=== PATIENT | male | born 1985 | race Caucasian/White ===

== ENCOUNTER → 2018-07-05 | Outpatient (CLI) | payer BC ==
--- NOTE | 2018-07-05 18:00 | PN ---
PROGRESS NOTE DATE OF SERVICE: 07/05/2018 This patient is a 32-year-old gentleman who has been followed in the sleep center for treatment of obstructive sleep apnea-hypopnea syndrome. The patient successfully continues to use his treatment every night without significant difficulty. He sometimes feels that the pressure may be not enough for him, especially when he starts to use the machine in the beginning of the night. Usually there is no snoring; only rarely after very long days and heavy work; according to his , when he is really tired he may start to snore. [place] Sleepiness Scale today is 7. MEDICATIONS: 1. Hydrochlorothiazide. Zocor and omeprazole have been stopped I checked patient's CPAP unit. CPAP pressure is 8 cm of water. Usage is 100% of the time for more than 4 hours. Average usage is 7.5 hours. Leak is 11 L/minute, which is in normal range. Apnea-hypopnea index is only 0.2, which is absolutely perfect. RAMP started from 5 cm of water. PHYSICAL EXAMINATION: GENERAL: A pleasant patient in no distress. VITAL SIGNS: BP 116/82, HR 85, RR 16, height 5 feet 11 inches, weight 319. Patient's weight has increased by around 21 pounds since his previous visit. Body mass index is 44.4, temperature 97.0, oxygen saturation at room air 95%. HEENT: PERRLA, EOMI. Evaluation of oropharynx showed tongue protrudes midline. Extremely low position of soft palate. NECK: Supple. No JVD. Thyroid is not palpable. LUNGS: Clear to percussion and to auscultation. Good air exchange. No wheezing or rhonchi. HEART: S1, S2 regular. No murmurs, gallops or rubs. ABDOMEN: Slightly obese. EXTREMITIES: No clubbing or cyanosis. BEHAVIORAL SPECIALIST: Awake, alert, and oriented X3. Cranial nerves 2 to 7 intact. There is no fasciculation or atrophy. noted. No focal deficits observed. IMPRESSION: 1. Severe obstructive sleep apnea-hypopnea syndrome, under full control with CPAP. The patient demonstrated 100% compliance with treatment, benefitting from treatment. 2. Obesity. Patient's weight increased by 21 pounds. 3. History of acid reflux. 4. History of hyperlipidemia. 5. Patient is on hydrochlorothiazide for increasing blood pressure. Normal blood pressure today in the office. PLAN: 1. Patient will continue to use CPAP equipment every night for the whole night. 2. I increased pressure in the machine to 9 cm of water. Patient will start from RAMP at the range of 6 cm of water. 3. Losing weight. 4. Sleep hygiene with regular time in bed for at least 8 hours. 5. No driving if feeling any sleepiness. 6. Prescription for all necessary CPAP supplies, including mask, tube, filters. Thank you very much for allowing me to participate in the management of your patient. Sincerely, Felipe Hurley MD, PhD, FAASM Diplomat of [employer] [facility] [place] MMODL / IJN: [id number] /
== END | disposition home or self-care (01) ==
LOC: SLEEP 16:44
PROVIDERS: ATTEND Internal Medicine
DX: G47.33 Obstructive sleep apnea (adult) (pediatric) (principal); E66.9 Obesity, unspecified; K21.9 Gastro-esophageal reflux disease without esophagitis; E78.5 Hyperlipidemia, unspecified; Z99.89 Dependence on other enabling machines and devices; Z79.899 Other long term (current) drug therapy; Z68.41 Body mass index [BMI] 40.0-44.9, adult

== ENCOUNTER 2018-12-19 19:17 | Emergency (ER) | payer BC ==
[2018-12-19] MEDS ORDERED: SODIUM CHLORIDE 0.9% 1,000 ML IV STA (19:32)
[2018-12-19] MEDS ORDERED: KETOROLAC 30 MG/ML 1 ML VIAL IVP STA (19:32)
--- NOTE | 2018-12-19 19:58 | ED ---
General Adult HPI - General Chief complaint: Urogenital Stated complaint: Abd Pain/ HX Kidney Stones Time Seen by Provider: 12/19/18 19:31 Source: patient, RN notes reviewed Mode of arrival: ambulatory Limitations: no limitations - History of Present Illness Initial comments: 33-year-old male presents emergency Department chief complaint of left flank p ain. Patient states that it started this morning with some discomfort in his low back along with some noted hematuria. Patient does have a history kidney stone states it feels exactly the same. Patient's had some nausea no vomiting no diarrhea no constipation. Patient states his last kidney stone he did have a removed with stent placement. - Related Data Home Medications Medication Instructions Recorded Confirmed Hydrochlorothiazide [Hydrodiuril] 25 mg PO DAILY 08/16/15 07/31/17 Previous Rx's Medication Instructions Recorded Ketorolac [Toradol] 10 mg PO Q8HR #15 tab 12/19/18 Ondansetron Odt [Zofran Odt] 4 mg PO Q8HR PRN #10 tab 12/19/18 Allergies Allergy/AdvReac Type Severity Reaction Status Date / Time No Known Allergies Allergy Verified 12/19/18 19:24 Review of Systems ROS Statement: Those systems with pertinent positive or pertinent negative responses have been documented in the HPI. ROS Other: All systems not noted in ROS Statement are negative. Past Medical History Past Medical History: GERD/Reflux, Hyperlipidemia, Hypertension Additional Past Medical History / Comment(s): KIDNEY STONES,MIGRAINES, History of Any Multi-Drug Resistant Organisms: None Reported Past Surgical History: Ear Surgery Additional Past Surgical History / Comment(s): RT ARM-PLATES AND SCREWS, RT EAR RECONSTRUCTION SX(MULTIPLE SX). lithotripsy 2014 Past Anesthesia/Blood Transfusion Reactions: No Reported Reaction Additional Past Anesthesia/Blood Transfusion Reaction / Comment(s): CLAUSTERPHOBIA Past Psychological History: No Psychological Hx Reported Smoking Status: Former smoker Past Alcohol Use History: None Reported Past Drug Use History: None Reported - Past Family History Father Family Medical History: Myocardial Infarction ([place]), Thyroid Disorder Additional Family Medical History / Comment(s): EAR PROBLEMS, Mother Family Medical History: Hyperlipidemia General Exam Limitations: no limitations General appearance: alert, in no apparent distress Head exam: Present: atraumatic, normocephalic, normal inspection ENT exam: Present: normal exam, normal oropharynx, mucous membranes moist Neck exam: Present: normal inspection. Absent: tenderness, meningismus, lympha denopathy Respiratory exam: Present: normal lung sounds bilaterally. Absent: respiratory distress, wheezes, rales, rhonchi, stridor Cardiovascular Exam: Present: regular rate, normal rhythm, normal heart sounds. Absent: systolic murmur, diastolic murmur, rubs, gallop, clicks GI/Abdominal exam: Present: soft, tenderness (Minimal left-sided), normal bowel sounds. Absent: distended, guarding, rebound, rigid Back exam: Present: full ROM. Absent: tenderness, CVA tenderness (R), CVA tenderness (L) Neurological exam: Present: alert, oriented X3, CN II-XII intact Skin exam: Present: warm, dry, intact, normal color. Absent: rash Course Vital Signs 12/19/18 19:22 Temperature 98.6 F Pulse Rate 90 Respiratory 20 Rate Blood Pressure 138/92 O2 Sat by Pulse 98 Oximetry Medical Decision Making - Medical Decision Making 33-year-old male presented for left flank pain. He does have a history kidney stones. Urinalysis reveals hematuria, KUB, labwork unremarkable. Patient will be discharged with follow-up with urology. Patient cannot tolerate Flomax is causes tachycardia. Patient advised increased fluids be discharged with Toradol, Zofran. - Lab Data Result diagrams: 12/19/18 20:00 12/19/18 20:00 Lab Results 12/19/18 12/19/18 12/19/18 Range/Units 20:00 20:00 20:00 WBC 7.0 (3.8-10.6) k/uL RBC 5.47 (4.30-5.90) m/uL Hgb 16.2 (13.0-17.5) gm/dL Hct 47.4 (39.0-53.0) % MCV 86.8 (80.0-100.0) fL MCH 29.7 (25.0-35.0) pg MCHC 34.2 (31.0-37.0) g/dL RDW 13.0 (11.5-15.5) % Plt Count 180 (150-450) k/uL Neutrophils % 53 % Lymphocytes % 33 % Monocytes % 8 % Eosinophils % 3 % Basophils % 1 % Neutrophils # 3.7 (1.3-7.7) k/uL Lymphocytes # 2.3 (1.0-4.8) k/uL Monocytes # 0.5 (0-1.0) k/uL Eosinophils # 0.2 (0-0.7) k/uL Basophils # 0.0 (0-0.2) k/uL Sodium 141 (137-145) mmol/L Potassium 4.1 (3.5-5.1) mmol/L Chloride 107 (98-107) mmol/L Carbon Dioxide 26 (22-30) mmol/L Anion Gap 8 mmol/L BUN 15 (9-20) mg/dL Creatinine 0.87 (0.66-1.25) mg/dL Est GFR (CKD-EPI)AfAm >90 (>60 ml/min/1.73 sqM) Est GFR (CKD-EPI)NonAf >90 (>60 ml/min/1.73 sqM) Glucose 123 H (74-99) mg/dL Calcium 9.6 (8.4-10.2) mg/dL Total Bilirubin 0.7 (0.2-1.3) mg/dL AST 35 (17-59) U/L ALT 64 (21-72) U/L Alkaline Phosphatase 108 (38-126) U/L Total Protein 7.2 (6.3-8.2) g/dL Albumin 4.3 (3.5-5.0) g/dL Lipase 66 (23-300) U/L Urine Color Yellow Urine Appearance Clear (Clear) Urine pH 7.0 (5.0-8.0) Ur Specific [place] 1.017 (1.001-1.035) Urine Protein Negative (Negative) Urine Glucose (UA) Negative (Negative) Urine Ketones Negative (Negative) Urine Blood Moderate H (Negative) Urine Nitrite Negative (Negative) Urine Bilirubin Negative (Negative) Urine Urobilinogen <2.0 (<2.0) mg/dL Ur Leukocyte Esterase Negative (Negative) Urine RBC >182 H (0-5) /hpf Ur Squamous Epith Cells <1 (0-4) /hpf Amorphous Sediment Rare H (None) /hpf Urine Mucus Rare H (None) /hpf Disposition Clinical Impression: Hematuria, Kidney stone Disposition: HOME SELF-CARE Condition: Stable Instructions (If sedation given, give patient instructions): Kidney Stones (ED) Additional Instructions: Please return to the Emergency Department if symptoms worsen or any other concerns. Prescriptions: Ketorolac [Toradol] 10 mg PO Q8HR #15 tab Ondansetron Odt [Zofran Odt] 4 mg PO Q8HR PRN #10 tab PRN Reason: Nausea Is patient prescribed a controlled substance at d/c from ED?: No Referrals: Art Juarez DO [Primary Care Provider] - 1-2 days Time of Disposition: 21:05
[2018-12-19 20:10] LABS: Basophils % (A) 1 %; Eosinophils # (A) 0.2 k/uL (0-0.7); Eosinophils % (A) 3 %; HCT 47.4 % (39.0-53.0); HGB 16.2 gm/dL (13.0-17.5); Lymphocytes # (A) 2.3 k/uL (1.0-4.8); Lymphocytes % (A) 33 %; MCH 29.7 pg (25.0-35.0); MCHC 34.2 g/dL (31.0-37.0); MCV 86.8 fL (80.0-100.0); Monocytes # (A) 0.5 k/uL (0-1.0); Monocytes % (A) 8 %; Neutrophils # (A) 3.7 k/uL (1.3-7.7); Neutrophils % (A) 53 %; Platelet Count 180 k/uL (150-450); RBC 5.47 m/uL (4.30-5.90)
[2018-12-19 20:15] LABS: Amorphous Sediment,Urine Rare /hpf; Appearance,Urine Clear (Clear); Bilirubin,Urine Negative (Negative); Blood,Urine Moderate (Negative); Color,Urine Yellow; Glucose,Urine (UA) Negative (Negative); Ketones,Urine Negative (Negative); Leukocyte Esterase,Urine Negative (Negative); Mucus,Urine Rare /hpf; Nitrite,Urine Negative (Negative); Protein,Urine Negative (Negative); RBC,Urine >182 /hpf (0-5); Specific Gravity,Urine 1.017 (1.001-1.035); Squamous Epithelial Cell,Urine <1 /hpf (0-4); Urobilinogen,Urine <2.0 mg/dL (<2.0)
[2018-12-19 20:20] LABS: ALT 64 U/L (21-72); AST 35 U/L (17-59); Albumin 4.3 g/dL (3.5-5.0); Alkaline Phosphatase 108 U/L (38-126); Anion Gap 8 mmol/L; Blood Urea Nitrogen 15 mg/dL (9-20); Calcium 9.6 mg/dL (8.4-10.2); Carbon Dioxide 26 mmol/L (22-30); Chloride 107 mmol/L (98-107); Glucose 123 mg/dL (74-99); Lipase 66 U/L (23-300); Potassium 4.1 mmol/L (3.5-5.1); Sodium 141 mmol/L (137-145); Total Bilirubin 0.7 mg/dL (0.2-1.3); Total Protein 7.2 g/dL (6.3-8.2)
--- NOTE | 2018-12-19 20:39 | XR ---
EXAMINATION TYPE: XR KUB, 4 views DATE OF EXAM: 12/19/2018 COMPARISON: NONE HISTORY: Left-sided abdominal pain TECHNIQUE: 4 upright views FINDINGS: The overlying soft tissues are quite prominent. Bowel gas pattern is normal. No definite acute skeletal or soft tissue findings. No abnormal calcifications. Limitation: The upright views do not include the hemidiaphragms and, therefore, cannot exclude pneumo peritoneum. IMPRESSION: Negative examination.
[2018-12-19] MEDS ORDERED: ACET/COD 300 MG/30 MG STARTER PACK 6 TAB BTL PO STA (21:03)
[2018-12-19 21:25] VITALS: BP 120/67; PULSE 67; RESP 18; TEMP 97.7
== END 2018-12-19 21:25 | disposition home or self-care (01) ==
LOC: EC 19:17
DX: N20.0 Calculus of kidney (principal); I10 Essential (primary) hypertension; Z87.891 Personal history of nicotine dependence; Z79.899 Other long term (current) drug therapy; Z87.19 Personal history of other diseases of the digestive system; Z98.890 Other specified postprocedural states
CPT/HCPCS: 99284; 96374; 96361; 36415; 80053; 83690; 85025; 81001; 74018; J1885

== ENCOUNTER → 2019-01-01 | Outpatient (CLI) | payer BC ==
--- NOTE | 2019-01-01 09:05 | CT ---
EXAMINATION TYPE: CT urogram wo/w con DATE OF EXAM: 01/01/2019 COMPARISON: CT abdomen pelvis 12/04/2015 HISTORY: 33-year-old male Hematuria, Renal stones TECHNIQUE: Contiguous axial scanning of the abdomen and pelvis performed without and with IV Contrast , patient injected with 100 mL of Isovue 300. Delayed images through the kidneys and bladder were obt ained. Coronal/sagittal reconstructions performed. 3-D reconstructions generated on a dedicated [employer] workstation. CT DLP: 3642.2 mGycm Automated exposure control for dose reduction was used. FINDINGS: Heart normal size without pericardial effusion. Lung bases clear without pleural effusion. Liver shows low attenuation and measures large at 19.8 cm. No biliary ductal dilatation. Portal venou s system is patent. Gallbladder, adrenal glands, and pancreas appear within normal limits. Spleen measures upper limits of normal in size at 13.5 cm. A prominent upper abdominal lymph nodes the gastrohepatic ligament region measuring 8 mm probably cole ctive/post inflammatory. Otherwise, no mesenteric or retroperitoneal lymphadenopathy seen. No dilated small bowel, free fluid, or free air. Normal appendix. Mild stool burden. No pericolonic inflammatory change. Evaluation of the kidneys shows no nephrolithiasis or hydronephrosis. No suspicious renal lesion. Sym metric uptake and excretion of contrast from both kidneys. No abnormal filling defects seen within th e renal collecting systems. Bilateral ureters appear symmetrical without any suspicious wall thickening. The graft the posterior third of the bladder opacifies and shows no suspicious filling defect. No abnormal fluid collection in the pelvis or pelvic lymphadenopathy. Bones: Bilateral L4 pars defects with grade 1 anterolisthesis at L4-L5. No osseous destructive process. IMPRESSION: 1. NO EVIDENCE FOR NEPHROLITHIASIS, URETERAL CALCULUS, SUSPICIOUS RENAL LESION, OR ABNORMAL FILLING D EFECT IN THE RENAL COLLECTING SYSTEMS/URETERS. 2. THE POSTERIOR THIRD OF THE BLADDER HAS HAD TIME TO OPACIFY AND SHOWS NO UROTHELIAL ABNORMALITY. 3. HEPATOMEGALY (19.8 CM) WITH HEPATIC STEATOSIS. CORRELATE WITH LFT's, LIPID PROFILE, AND PATIENT RI SK FACTORS. 4. BILATERAL L4 PARS DEFECTS WITH GRADE 1 ANTEROLISTHESIS AT L4-L5.
== END ==
LOC: RADCTMAIN 06:56
PROVIDERS: ATTEND Urology
DX: R31.9 Hematuria, unspecified (principal); N20.0 Calculus of kidney; K76.0 Fatty (change of) liver, not elsewhere classified; M43.16 Spondylolisthesis, lumbar region; R16.0 Hepatomegaly, not elsewhere classified
CPT/HCPCS: 74178; 74400; Q9967

== ENCOUNTER → 2019-02-18 | Outpatient (CLI) | payer BC ==
[2019-02-18 15:37] VITALS: BP 138/89; PULSE 108; TEMP 98.8; BMI 46.0
--- NOTE | 2019-02-18 16:27 | P.HPBAR ---
Bariatric H&P - History & Physicial H&P Date: 02/18/19 History & Physicial: Visit/CC: bariatric sx consult Patient initial contact: Initial weight: 151.999 kg Initial weight in pounds: 335.10 Height: 5 ft 11.5 in Initial BMI: 46.0 Last weight: Current weight: 151.999 kg Current weight in pounds: 335.10 Current BMI: 46.0 [place] body weight (based on NIH guidelines): 79.379 kg Excess body weight loss: 0.0% The patient is a 33 year-old M who presents for Bariatric Assessment. Patient presents today for initial bariatric consultation. Patient's is interested in the sleeve gastric. His BMI is 46. He has had lifetime problems obesity. Past Medical History Past Medical History: GERD/Reflux, Hyperlipidemia, Hypertension, Sleep Apnea/CPAP/BIPAP Additional Past Medical History / Comment(s): KIDNEY STONES History of Any Multi-Drug Resistant Organisms: None Reported Past Surgical History: Ear Surgery Additional Past Surgical History / Comment(s): RT ARM-PLATES AND SCREWS, RT EAR RECONSTRUCTION SX(MULTIPLE SX). lithotripsy 2014 Past Anesthesia/Blood Transfusion Reactions: No Reported Reaction Additional Past Anesthesia/Blood Transfusion Reaction / Comm: CLAUSTROPHOBIA. No transfusions to date Past Psychological History: No Psychological Hx Reported Smoking Status: Former smoker Past Alcohol Use History: None Reported Additional Past Alcohol Use History / Comment(s): smoked 2 years, 1pk/day, quit smoking 2007 Past Drug Use History: None Reported - Past Family History Father Family Medical History: Myocardial Infarction ([place]), Thyroid Disorder Additional Family Medical History / Comment(s): EAR PROBLEMS, Mother Family Medical History: Hyperlipidemia Surgical - Exam Vital Signs Temp Pulse BP 98.8 F 108 H 138/89 02/18/19 15:29 02/18/19 15:29 02/18/19 15:29 BMI 46 - General well developed, well nourished, no distress - Eyes PERRL - ENT normal pinna - Neck no masses - Respiratory normal expansion - Cardiovascular Rhythm: regular - Abdomen Abdomen: soft, non tender Bariatric Assessment & Plan Plan: Morbid obesity with BMI 46. Patient has a good understanding of the sleeve gastrectomy. We went over the risks and benefits of the procedure. Patient will undergo EGD. He'll follow-up in the peritoneal clinic after this is been performed. Bariatric Checklist Checklist: Plan: Checklist: EGD: 1. Hiatal hernia: 2. H. Pylori: HgbA1c: Vitamin D: Smoking: Former smoker Primary care physician referral: Dr. Art Juarez Psychiatry clearance: Cardiology clearance: Sleep study: Diet journal: VTE risk score: VTE risk level: Rehab needs at discharge:
[2019-02-18 17:18] LABS: HCT 47.4 % (39.0-53.0); MCH 29.6 pg (25.0-35.0); MCHC 33.6 g/dL (31.0-37.0); MCV 87.9 fL (80.0-100.0); Mean Platelet Volume 7.4; Platelet Count 194 k/uL (150-450); RDW 13.2 % (11.5-15.5); WBC 7.3 k/uL (3.8-10.6)
[2019-02-19 00:10] LABS: Vitamin D 25 Hydroxy 13.3 ng/mL (30.0-100.0)
[2019-02-19 00:18] LABS: African American GFR (CKD) 90.9 (60.0-200.0); Albumin 4.4 g/dL (3.80-4.90); Albumin/Globulin Ratio 1.69 (1.60-3.17); Anion Gap 8.2 mmol/L (4.00-12.00); Calcium 9.3 mg/dL (8.7-10.3); Carbon Dioxide 26.8 mmol/L (21.6-31.8); Globulin 2.6 g/dL (1.6-3.3); Potassium 3.8 mmol/L (3.5-5.5); Total Bilirubin 0.5 mg/dL (0.3-1.2)
[2019-02-19 00:49] LABS: Hemoglobin A1C 5.8 % (4.0-6.0)
== END | disposition home or self-care (01) ==
LOC: BARWHC3 14:53
PROVIDERS: ATTEND Surgery
DX: E66.01 Morbid (severe) obesity due to excess calories (principal); E55.9 Vitamin D deficiency, unspecified; E44.0 Moderate protein-calorie malnutrition; Z68.42 Body mass index [BMI] 45.0-49.9, adult; Z87.891 Personal history of nicotine dependence
CPT/HCPCS: 36415; 80053; 82306; 82607; 83036; 84443; 85027; 93005; 99211

== ENCOUNTER 2019-04-10 12:14 | Day surgery (SDC) | payer BC ==
[2019-04-04 13:32] VITALS: BMI 46.0
[~2019-04-10 12:14] MED LIST: LACTATED RINGERS 1,000 ML IV SCH; LIDOCAINE 1% 20 ML VIAL (10MG/ML) FOR IV START INTRADERMA PRN
[2019-04-10 12:38] VITALS: TEMP 98
[2019-04-10] MEDS ORDERED: PROPOFOL 10 MG/ML 20 ML VIAL IV ONE (12:56)
[2019-04-10] MEDS ORDERED: LIDOCAINE 1% INJ 10MG/ML (20 ML MDV) ONE (12:56)
[2019-04-10] MEDS ORDERED: fentaNYL (PF) 50 MCG/ML 2 ML AMP ONE (12:56)
--- NOTE | 2019-04-10 13:15 | P.GSHP ---
History of Present Illness H&P Date: 04/10/19 Chief Complaint: Morbid obesity This is a 33 male undergoing workup for sleeve gastrectomy. The patient's had some complaints of GERD. He is undergoing EGD today. His BMI is 47 Past Medical History Past Medical History: Hypertension, Sleep Apnea/CPAP/BIPAP Additional Past Medical History / Comment(s): KIDNEY STONES History of Any Multi-Drug Resistant Organisms: None Reported Past Surgical History: Ear Surgery, Orthopedic Surgery Additional Past Surgical History / Comment(s): RT ARM-PLATES AND SCREWS, RT EAR RECONSTRUCTION SX(MULTIPLE SX). lithotripsy 2015 Past Anesthesia/Blood Transfusion Reactions: No Reported Reaction Additional Past Anesthesia/Blood Transfusion Reaction / Comment(s): CLAUSTROPHOBIA Smoking Status: Never smoker - Past Family History Father Family Medical History: Myocardial Infarction ([place]), Thyroid Disorder Additional Family Medical History / Comment(s): EAR PROBLEMS, Mother Family Medical History: Hyperlipidemia Medications and Allergies Home Medications Medication Instructions Recorded Confirmed Type Hydrochlorothiazide [Hydrodiuril] 25 mg PO DAILY 08/16/15 04/10/19 History Allergies Allergy/AdvReac Type Severity Reaction Status Date / Time tamsulosin [From Flomax] AdvReac Rapid Verified 04/10/19 12:34 Heart Rate Surgical - Exam Vital Signs Temp Pulse Resp BP Pulse Ox 98.0 F 89 16 143/81 96 04/10/19 12:37 04/10/19 12:37 04/10/19 12:37 04/10/19 12:37 04/10/19 12:37 - General well developed, well nourished, no distress - Eyes PERRL - ENT normal pinna - Neck no masses - Respiratory normal expansion - Cardiovascular Rhythm: regular - Abdomen Abdomen: soft, non tender Assessment and Plan Assessment: Morbid obesity, BMI 47 we'll perform EGD.
--- NOTE | 2019-04-10 13:32 | P.OP ---
Date of Procedure: 04/10/19 Preoperative Diagnosis: Morbid obesity Postoperative Diagnosis: Antral gastritis Procedure(s) Performed: EGD Anesthesia: MAC Surgeon: Arthur White Pathology: other (Antrum) Condition: stable Disposition: PACU Description of Procedure: The patient's placed on the endoscopy table in the lateral position. He received IV sedation. The gastroscope placed oropharynx passed in the esophagus and stomach. Scope was then placed through the pylorus. First portion duodenum appeared normal. The scope was brought back and the antrum was mildly inflamed. A biopsies performed. Scope was then retroflexed and the remainder some appeared normal. There is no significant hiatal hernia. The GE junction was at 40 cm. The distal esophagus appeared normal. The proximal esophagus appeared normal. Scope was withdrawn for patient.
[2019-04-10 13:46] VITALS: BP 115/81; PULSE 67; RESP 16
== END 2019-04-10 14:16 | disposition home or self-care (01) ==
LOC: ORWHC2ENDO 12:14
PROVIDERS: ATTEND Surgery
DX: K21.9 Gastro-esophageal reflux disease without esophagitis (principal); K29.50 Unspecified chronic gastritis without bleeding; E66.01 Morbid (severe) obesity due to excess calories; Z87.442 Personal history of urinary calculi; I10 Essential (primary) hypertension; Z68.42 Body mass index [BMI] 45.0-49.9, adult; Z99.89 Dependence on other enabling machines and devices; Z82.49 Family history of ischemic heart disease and other diseases of the circulatory system; Z88.8 Allergy status to other drugs, medicaments and biological substances; Z79.899 Other long term (current) drug therapy; Z87.891 Personal history of nicotine dependence; G47.33 Obstructive sleep apnea (adult) (pediatric)
CPT/HCPCS: 88305; 43239; J2001; J3010; J2704

== ENCOUNTER → 2019-07-01 | Outpatient (CLI) | payer OTHER ==
--- NOTE | 2019-07-01 11:59 | XR ---
Left wrist HISTORY: Pain 4 views of the left wrist Bone mineralization, joint spaces and alignment are maintained. No appreciable ulnar styloid. There m ay be some remodeling of the radiocarpal joint, correlate for any remote history of trauma. IMPRESSION: No fracture or dislocation.
--- NOTE | 2019-07-01 12:01 | XR ---
Lumbar sacral spine HISTORY: Strain or muscle, pain 5 views of lumbosacral spine Bone mineralization, disc spaces and alignment are maintained. There is bilateral spondylolysis at L4 , retrolisthesis grade 1 L3-4, anterolisthesis grade 1 L4-5. Loss of disc height present L4-5, L5-S1 and possibly L3-4. There is associated spondylosis. Sclerosis in the posterior elements of the lower lumbar spine compatible with facet arthropathy. IMPRESSION: Spondylolysis, spondylolisthesis, degenerative disc disease.
== END | disposition home or self-care (01) ==
LOC: RADXRMAIN 11:16
PROVIDERS: ATTEND Emergency Medicine
DX: M51.37 Other intervertebral disc degeneration, lumbosacral region (principal); M43.16 Spondylolisthesis, lumbar region; M47.816 Spondylosis without myelopathy or radiculopathy, lumbar region; S63.502A Unspecified sprain of left wrist, initial encounter
CPT/HCPCS: 72110

== ENCOUNTER → 2019-07-03 | Outpatient (CLI) | payer BC, OTHER ==
--- NOTE | 2019-07-03 10:30 | XR ---
EXAMINATION TYPE: XR chest 2V DATE OF EXAM: 07/03/2019 COMPARISON: 07/31/2017 TECHNIQUE: PA and lateral views submitted. HISTORY: Pain FINDINGS: The lungs are clear and there is no pneumothorax, pleural effusion, or focal pneumonia. Biapical pl eural thickening. No overt failure. Heart size normal. IMPRESSION: 1. No acute process.
== END | disposition home or self-care (01) ==
LOC: RADXRMAIN 10:00
PROVIDERS: ATTEND Emergency Medicine
DX: S29.012D Strain of muscle and tendon of back wall of thorax, subsequent encounter (principal)
CPT/HCPCS: 71046

== ENCOUNTER 2019-07-07 11:00 | Emergency (ER) | payer BC ==
[2019-07-07 11:16] VITALS: BP 129/84; PULSE 84; RESP 18; TEMP 98.8
[2019-07-07] MEDS ORDERED: DIPH,PERTUS(ACELL)TETVAC-LF 0.5 ML VIAL IM ONE (11:25)
--- NOTE | 2019-07-07 11:29 | ED ---
Medical Decision Making - Medical Decision Making Patient presents to the ED with his for evaluation. Patient states that he has had pain to the sole of his left foot just proximal to his left first toe since about 9 PM yesterday evening. Patient states that the day prior there were some broken pieces of glass at his residence that he believes that he may have stepped on, but he does not recall doing so. Patient denies noticing any pain yesterday morning or during the day yesterday. Patient denies any other trauma or injury, fever or chills, focal numbness/weakness/neuro deficit, dyspnea, dizziness, or any other symptoms or complaints. Patient states that his last tetanus shot was 7 years ago. Disposition Referrals: Sudarshan Oropeza MD [Primary Care Provider] - 1-2 days
--- NOTE | 2019-07-07 11:31 | ED ---
General Adult HPI - General Chief complaint: Extremity Injury, Lower Stated complaint: Glass in foot Time Seen by Provider: 07/07/19 11:19 Source: patient Mode of arrival: ambulatory Limitations: no limitations - History of Present Illness Initial comments: Patient presents to the ED with his for evaluation. Patient states that he has had pain to the sole of his left foot just proximal to his left first toe since about 9 PM yesterday evening. Patient states that the day prior there were some broken pieces of glass at his residence that he believes that he may have stepped on, but he does not recall doing so. Patient denies noticing any pain yesterday morning or during the day yesterday. Patient denies any other trauma or injury, fever or chills, focal numbness/weakness/neuro deficit, dyspnea, dizziness, or any other symptoms or complaints. Patient states that his last tetanus shot was 7 years ago. - Related Data Home Medications Medication Instructions Recorded Confirmed Hydrochlorothiazide [Hydrodiuril] 25 mg PO DAILY 08/16/15 04/10/19 Allergies Allergy/AdvReac Type Severity Reaction Status Date / Time tamsulosin [From Flomax] AdvReac Rapid Verified 07/07/19 12:31 Heart Rate Review of Systems ROS Statement: Those systems with pertinent positive or pertinent negative responses have been documented in the HPI. ROS Other: All systems not noted in ROS Statement are negative. Past Medical History Past Medical History: Hypertension, Sleep Apnea/CPAP/BIPAP Additional Past Medical History / Comment(s): KIDNEY STONES History of Any Multi-Drug Resistant Organisms: None Reported Past Surgical History: Ear Surgery, Orthopedic Surgery Additional Past Surgical History / Comment(s): RT ARM-PLATES AND SCREWS, RT EAR RECONSTRUCTION SX(MULTIPLE SX). lithotripsy 2015 Past Anesthesia/Blood Transfusion Reactions: No Reported Reaction Additional Past Anesthesia/Blood Transfusion Reaction / Comment(s): CLAUSTROPHOBIA Past Psychological History: No Psychological Hx Reported Smoking Status: Never smoker Past Alcohol Use History: None Reported Past Drug Use History: None Reported - Past Family History Father Family Medical History: Myocardial Infarction ([place]), Thyroid Disorder Additional Family Medical History / Comment(s): EAR PROBLEMS, Mother Family Medical History: Hyperlipidemia General Exam Limitations: no limitations General appearance: alert, in no apparent distress Head exam: Present: atraumatic, normocephalic Eye exam: Present: normal appearance, EOMI ENT exam: Present: mucous membranes moist Respiratory exam: Present: normal lung sounds bilaterally. Absent: respiratory distress, wheezes, rales, rhonchi Cardiovascular Exam: Present: regular rate, normal rhythm, normal heart sounds, other (Normal left dorsalis pedis pulse) Extremities exam: Present: other (A tiny, superficial abrasion is noted to the sole of the patient's left foot just proximal to his first toe; no foreign body is palpable or visible at this site) Neurological exam: Present: alert, oriented X3. Absent: motor sensory deficit Psychiatric exam: Present: normal affect, normal mood Skin exam: Present: warm, dry, normal color Course Vital Signs 07/07/19 11:14 Temperature 98.8 F Pulse Rate 84 Respiratory 18 Rate Blood Pressure 129/84 O2 Sat by Pulse 97 Oximetry Medical Decision Making - Medical Decision Making Patient's left foot x-rays are negative for radiopaque foreign body or acute fracture. No palpable or visible foreign body is appreciated on examination of the patient's left foot. I feel that exploration for possible small foreign body removal would not be advised at this time given the risks of soft tissue exploration-> patient agrees. Patient agrees to watch for signs of infection and to return to the ED if he notices any such signs. Patient was instructed to follow up with residential sales representative in case his symptoms persist. Patient was clearly explained return and follow-up instructions, and he feels comfortable with this plan. Patient was counseled about foot foreign bodies and abrasions. - Radiology Data Radiology results: image reviewed (Left foot x-rays show no radiopaque foreign body and no acute fracture) Disposition Clinical Impression: Abrasion of left foot, Left foot pain Narrative: Possible left foot soft tissue foreign body Disposition: HOME SELF-CARE Condition: Stable Instructions (If sedation given, give patient instructions): Abrasion (ED), Soft Tissue Foreign Body (ED) Is patient prescribed a controlled substance at d/c from ED?: No Referrals: Sudarshan Oropeza MD [Primary Care Provider] - 1-2 days Time of Disposition: 12:46
--- NOTE | 2019-07-07 12:05 | XR ---
EXAMINATION TYPE: XR foot complete LT , 3 VIEWS DATE OF EXAM ORDERED: 07/07/2019 HISTORY: left foot pain, possible glass FB. COMPARISON: None. FINDINGS: No fracture, dislocation or radiopaque foreign body is seen. Note is made of tiny plantar and Achilles calcaneal spurs. IMPRESSION: NO ACUTE OSSEOUS LESION OR RADIOPAQUE FOREIGN BODY.
== END 2019-07-07 12:58 | disposition home or self-care (01) ==
LOC: EC 11:00
DX: S90.812A Abrasion, left foot, initial encounter (principal); I10 Essential (primary) hypertension; G47.30 Sleep apnea, unspecified; Z88.8 Allergy status to other drugs, medicaments and biological substances; Z79.899 Other long term (current) drug therapy; Z99.89 Dependence on other enabling machines and devices; Z23 Encounter for immunization; X58.XXXA Exposure to other specified factors, initial encounter; Y92.009 Unspecified place in unspecified non-institutional (private) residence as the place of occurrence of the external cause
CPT/HCPCS: 90471; 90715; 99283

== ENCOUNTER 2020-01-20 19:20 | Emergency (ER) | payer BC ==
[2020-01-20 19:26] VITALS: TEMP 98
[2020-01-20] MEDS ORDERED: KETOROLAC 60 MG/2 ML VIAL IM STA (19:32)
--- NOTE | 2020-01-20 20:46 | XR ---
EXAMINATION TYPE: XR lumbar spine 2 or 3V DATE OF EXAM: 01/20/2020 COMPARISON: 07/01/2019 HISTORY: Back pain hip pain TECHNIQUE: Three-view lumbar spine FINDINGS: There is a transitional T12 vertebral level. There 5 lumbar-type vertebral bodies. Pedicles are intact. Disc heights are preserved. Vertebral body heights are preserved. A minimal spondylolist hesis of L4 anterior and L5 may be present. No significant interval changes are evident. IMPRESSION: 1. Minimal grade 1 spondylolisthesis of L4 anterior and L5.
--- NOTE | 2020-01-20 20:46 | XR ---
EXAMINATION TYPE: XR Hip Complete RT DATE OF EXAM: 01/20/2020 COMPARISON: None HISTORY: Back and hip pain TECHNIQUE: 2 view right hip FINDINGS: Femoral head articulates with the acetabulum. No acute fracture or dislocation is evident. Joint spaces preserved. IMPRESSION: 1. Normal 2 view right
--- NOTE | 2020-01-20 20:48 | ED ---
Lower Extremity Injury HPI - General Chief Complaint: Extremity Injury, Lower Stated Complaint: RT hip pain Time Seen by Provider: 01/20/20 19:29 Source: patient Mode of arrival: ambulatory Limitations: no limitations - History of Present Illness Initial Comments: 34-year-old male presenting today for chief complaint of right hip pain. Patient states he feels that his hip is grinding. Patient states he usually has chronic low back pain. Patient states he has no severe back pain at this time. Denies any falls or trauma. Patient states he is recently off work and just started he states he is doing a lot of heavy lifting and ambulating. Patient states he believe this is the cause, she denies any loss of bowel bladder control urinary retention loss of sensation or weakness of the lower extremities. Patient denies coolness or pallor of extremity. Patient states that the pa in has been present less consistently for 3 months. Patient had no add itional complaints, denies fevers, leg swellling. He appears well on arrival. Afebrile no acute distress. - Related Data Home Medications Medication Instructions Recorded Confirmed Hydrochlorothiazide [Hydrodiuril] 25 mg PO DAILY 08/16/15 07/07/19 Allergies Allergy/AdvReac Type Severity Reaction Status Date / Time tamsulosin [From Flomax] AdvReac Rapid Verified 01/20/20 19:26 Heart Rate steroids Allergy Unknown Uncoded 01/20/20 19:26 Review of Systems ROS Statement: Those systems with pertinent positive or pertinent negative responses have been documented in the HPI. ROS Other: All systems not noted in ROS Statement are negative. Past Medical History Past Medical History: Hypertension, Sleep Apnea/CPAP/BIPAP Additional Past Medical History / Comment(s): KIDNEY STONES History of Any Multi-Drug Resistant Organisms: None Reported Past Surgical History: Ear Surgery, Orthopedic Surgery Additional Past Surgical History / Comment(s): RT ARM-PLATES AND SCREWS, RT EAR RECONSTRUCTION SX(MULTIPLE SX). lithotripsy 2014 Past Anesthesia/Blood Transfusion Reactions: No Reported Reaction Additional Past Anesthesia/Blood Transfusion Reaction / Comment(s): CLAUSTROPHOBIA Past Psychological History: No Psychological Hx Reported Smoking Status: Never smoker Past Alcohol Use History: Rare Past Drug Use History: None Reported - Past Family History Father Family Medical History: Myocardial Infarction ([place]), Thyroid Disorder Additional Family Medical History / Comment(s): EAR PROBLEMS, Mother Family Medical History: Hyperlipidemia General Exam - General Exam Comments Initial Comments: General: The patient is awake and alert, in no distress Eye: +3 mm pupils are equal, round and reactive to light, extra-ocular movements are intact. No nystagmus. There is normal conjunctiva bilaterally. No signs of icterus. Ears, nose, mouth and throat: There are moist mucous membranes and no oral lesions. Gastrointestinal: Soft, non-distended, non-tender abdomen without masses or organomegaly noted. There is no rebound or guarding present. Musculoskeletal: No skin changes. Normal ROM, with mild tenderness in right hip. No midline thoracic or lumbar spine to palpation. Strength 5/5 of the LE b/l. Sensation intact of the LE b/l including the saddle region. DP pulse 2+. A mbulates without difficulty Neurological: A&O x 3. CN II-XII intact grossly, There are no obvious motor or sensory deficits. Coordination appears grossly intact. Speech is normal. Skin: Skin is warm and dry and no rashes or lesions are noted. Psychiatric: Cooperative, appropriate mood & affect, normal judgment. Limitations: no limitations Course Vital Signs 01/20/20 01/20/20 19:24 20:50 Temperature 98.0 F 98.0 F Pulse Rate 109 H 88 Respiratory 18 17 Rate Blood Pressure 131/70 137/91 O2 Sat by Pulse 97 97 Oximetry Medical Decision Making - Medical Decision Making 34-year-old male presenting today for chief complaint ofright hip pain. No falls or injury x-ray negative for acute process. Some degenerative changes of spine noted. no midine pain. More so hip pain. no fevers, no skin changes Ambulating without difficulty. Ongoing 3 months increased wtih increased activity recommend PCP f/u. I feel patient has acute exacerbation of chronic problem that is not life threatening at this time. Patient agreeablet discharged appearing well with RICE instruction. Discussed case with Dr. Waggoner. Disposition Clinical Impression: Right hip pain, Chronic low back pain Disposition: HOME SELF-CARE Condition: Good Instructions (If sedation given, give patient instructions): Hip Pain (ED) Additional Instructions: Please use medication as discussed. Please follow-up with family doctor in the next 2 days, recommend orthopedic consultation if symptoms are persistent. Please return to emergency room if the symptoms increase or worsen or for any other concerns. Is patient prescribed a controlled substance at d/c from ED?: No Referrals: Sudarshan Oropeza MD [Primary Care Provider] - 1-2 days Time of Disposition: 20:48
[2020-01-20 20:57] VITALS: BP 137/91; PULSE 88; RESP 17
== END 2020-01-20 20:50 | disposition home or self-care (01) ==
LOC: EC 19:20
DX: G89.29 Other chronic pain (principal); M54.5 Low back pain; M25.551 Pain in right hip; I10 Essential (primary) hypertension; G47.30 Sleep apnea, unspecified; Z79.899 Other long term (current) drug therapy; Z88.8 Allergy status to other drugs, medicaments and biological substances; Z99.89 Dependence on other enabling machines and devices; Z98.890 Other specified postprocedural states; Z96.698 Presence of other orthopedic joint implants
CPT/HCPCS: 72100; 73502; 99283; 96372; J1885

== ENCOUNTER 2020-03-04 18:43 | Emergency (ER) | payer BC ==
[2020-03-04] MEDS ORDERED: KETOROLAC 60 MG/2 ML VIAL IM STA (19:33)
--- NOTE | 2020-03-04 19:45 | ED ---
Back Pain HPI - General Chief Complaint: Back Pain/Injury Stated Complaint: Bulging disc, numbness L leg Time Seen by Provider: 03/04/20 19:01 Source: patient Limitations: no limitations - History of Present Illness Initial Comments: Patient is a 34-year-old male presenting to the emergency Department with complaints of low back pain as well as numbness in his left upper thigh 1 day. Patient states he's been dealing with this low back pain for approximately 3 months. He recently had an MRI which showed a bulging disc. He is set to have an epidural injection in approximately 7 days. He states he came into the ER tonight because he started having some numbness on the upper part of his left thigh. Patient states the pain in his low back is unchanged and he typically has pain running down his right leg however this left leg numbness is new. He denies any new traumas or falls. He denies any bowel or bladder incontinence. He denies any recent fever or chills. He states for the last 3 weeks he has been walking with the assistance of a upright walker. Patient has not been working for the past 2 months. He did try physical therapy which increases symptoms. He admits to history of hypertension, no other pertinent past medical history. He states he does have a history of kidney stones however this is completely different. He denies any nausea or vomiting. He has no further complaints at this time. - Related Data Home Medications Medication Instructions Recorded Confirmed Hydrochlorothiazide [Hydrodiuril] 25 mg PO DAILY 08/16/15 07/07/19 Previous Rx's Medication Instructions Recorded Hydrocodone/Acetaminophen [[place] 1 tab PO Q6HR PRN #10 tab 03/04/20 5-325] methylPREDNISolone [Medrol Dose 4 mg PO DIRECTED #1 pack 03/04/20 Pack] Allergies Allergy/AdvReac Type Severity Reaction Status Date / Time tamsulosin [From Flomax] AdvReac Rapid Verified 03/04/20 19:49 Heart Rate steroids Allergy Unknown Uncoded 03/04/20 18:49 Review of Systems ROS Statement: Those systems with pertinent positive or pertinent negative responses have been documented in the HPI. ROS Other: All systems not noted in ROS Statement are negative. Past Medical History Past Medical History: Hypertension, Sleep Apnea/CPAP/BIPAP Additional Past Medical History / Comment(s): KIDNEY STONES History of Any Multi-Drug Resistant Organisms: None Reported Past Surgical History: Ear Surgery, Orthopedic Surgery Additional Past Surgical History / Comment(s): RT ARM-PLATES AND SCREWS, RT EAR RECONSTRUCTION SX(MULTIPLE SX). lithotripsy 2015 Past Anesthesia/Blood Transfusion Reactions: No Reported Reaction Additional Past Anesthesia/Blood Transfusion Reaction / Comment(s): CLAUSTROPHOBIA Past Psychological History: No Psychological Hx Reported Smoking Status: Never smoker Past Alcohol Use History: Rare Past Drug Use History: None Reported - Past Family History Father Family Medical History: Myocardial Infarction ([place]), Thyroid Disorder Additional Family Medical History / Comment(s): EAR PROBLEMS, Mother Family Medical History: Hyperlipidemia General Exam - General Exam Comments Initial Comments: GENERAL: Well-appearing, well-nourished and in no acute distress. HEAD: Atraumatic, normocephalic. EYES: Pupils equal round and reactive to light, extraocular movements intact, sclera anicteric, conjunctiva are normal. ENT: Nares patent, oropharynx clear without exudates. Moist mucous membranes. NECK: Normal range of motion, supple without lymphadenopathy or JVD. LUNGS: Breath sounds clear to auscultation bilaterally and equal. No wheezes rales or rhonchi. HEART: Regular rate and rhythm without murmurs, rubs or gallops. ABDOMEN: Soft, nontender, normoactive bowel sounds. No guarding, no rebound. No masses appreciated. : Deferred EXTREMITIES: Normal range of motion, no pitting or edema. No clubbing or cyanosis. 5 out of 5 strength in upper and lower extremities bilaterally. Sensation is equal and bilateral. Full trunk range of motion with pain increased with truck flexion. Patient is able to contract glutes. NEUROLOGICAL: Cranial nerves II through XII grossly intact. Normal speech, normal gait. PSYCH: Normal mood, normal affect. SKIN: Warm, Dry, normal turgor, no rashes or lesions noted. Limitations: no limitations Course Vital Signs 03/04/20 18:49 Temperature 98.4 F Pulse Rate 97 Respiratory 18 Rate Blood Pressure 117/79 O2 Sat by Pulse 97 Oximetry Medical Decision Making - Medical Decision Making Patient is a 34-year-old male presenting for chronic low back pain as well as 1 day of left upper leg numbness. Vitals are stable. Recent MRI showed a bulging disc. He is set to have an epidural in 7 days. His exam is unremarkable, no neuro deficits. No saddle paresthesia, no bowel or bladder incontinence, he has normal glut activation. I discussed with patient and we can try an injection of Toradol as well as a short course of steroids. He says those have helped in the past. Patient states he has tried tramadol for pain but that does not help. I will give him a short course of [place]. He is to follow-up with his orthopedic doctor. He is stable for discharge. He is in agreement with this plan of care. Return parameters were discussed with the patient he verbalizes understanding. Case discussed with Dr. Mann. Disposition Clinical Impression: Lumbar radiculopathy Disposition: HOME SELF-CARE Condition: Stable Instructions (If sedation given, give patient instructions): Lumbar Radiculopathy (ED) Additional Instructions: Please return to the Emergency Department if symptoms worsen or any other concerns. Trial of steroids for inflammation and pain. Recommend heat and/or ice to the low back. Gentle stretching as discussed. Follow back up with orthopedic doctor. Prescriptions: methylPREDNISolone [Medrol Dose Pack] 4 mg PO DIRECTED #1 pack Hydrocodone/Acetaminophen [[place] 5-325] 1 tab PO Q6HR PRN #10 tab PRN Reason: Pain Is patient prescribed a controlled substance at d/c from ED?: Yes When asked, does pt state using other controlled substances?: Yes If prescribed controlled substance>3 days was MAPS reviewed?: Prescribed <3 Days If opioid is for acute pain is fill amount 7 days or less?: Yes If Rx opioid, was Start Talking consent form obtained?: Yes Referrals: Sudarshan Oropeza MD [Primary Care Provider] - 1-2 days
[2020-03-04 20:04] VITALS: BP 139/96; PULSE 95; RESP 16; TEMP 97.8
== END 2020-03-04 20:03 | disposition home or self-care (01) ==
LOC: EC 18:43
DX: M54.16 Radiculopathy, lumbar region (principal); I10 Essential (primary) hypertension; Z79.899 Other long term (current) drug therapy; Z88.8 Allergy status to other drugs, medicaments and biological substances; Z99.89 Dependence on other enabling machines and devices
CPT/HCPCS: 99283; 96372; J1885

== ENCOUNTER → 2020-04-21 | Outpatient (CLI) | payer BC ==
--- NOTE | 2020-04-21 12:43 | XR ---
EXAMINATION TYPE: XR chest 2V DATE OF EXAM: 04/21/2020 COMPARISON: NONE TECHNIQUE: PA and lateral views submitted. HISTORY: Preop FINDINGS: The lungs are clear and there is no pneumothorax, pleural effusion, or focal pneumonia. Biapical pl eural thickening. Heart size normal. No overt failure. IMPRESSION: 1. No acute process.
[2020-04-21 13:00] LABS: Basophils # (A) 0.1 k/uL (0-0.2); Basophils % (A) 1 %; Eosinophils # (A) 0.1 k/uL (0-0.7); Eosinophils % (A) 1 %; HCT 48.6 % (39.0-53.0); HGB 16.3 gm/dL (13.0-17.5); Lymphocytes % (A) 33 %; MCH 30.6 pg (25.0-35.0); MCHC 33.6 g/dL (31.0-37.0); MCV 90.9 fL (80.0-100.0); Monocytes # (A) 0.6 k/uL (0-1.0); Monocytes % (A) 10 %; Neutrophils # (A) 3.1 k/uL (1.3-7.7); Neutrophils % (A) 52 %; Platelet Count 172 k/uL (150-450); RBC 5.35 m/uL (4.30-5.90); RDW 13.3 % (11.5-15.5)
[2020-04-21 13:09] LABS: ALT 131 U/L (4-49); AST 72 U/L (17-59); African American GFR (CKD) >90 (>60 ml/min/1.73 sqM); Albumin 4.1 g/dL (3.5-5.0); Alkaline Phosphatase 153 U/L (38-126); Anion Gap 11 mmol/L; Blood Urea Nitrogen 9 mg/dL (9-20); Calcium 9.1 mg/dL (8.4-10.2); Carbon Dioxide 24 mmol/L (22-30); Chloride 98 mmol/L (98-107); Glucose 408 mg/dL (74-99); Non-African American GFR(CKD) >90 (>60 ml/min/1.73 sqM); Potassium 4.1 mmol/L (3.5-5.1); Sodium 133 mmol/L (137-145); Total Bilirubin 1.2 mg/dL (0.2-1.3)
[2020-04-21 13:24] LABS: INR 0.9 (<1.2); Prothrombin Time 9.9 sec (9.0-12.0)
[2020-04-21 13:37] LABS: Partial Thromboplastin Time 21.4 sec (22.0-30.0)
[2020-04-21 13:51] LABS: Appearance,Urine Clear (Clear); Bilirubin,Urine Negative (Negative); Blood,Urine Negative (Negative); Color,Urine Light Yellow; Glucose,Urine (UA) 4+ (Negative); Ketones,Urine Negative (Negative); Leukocyte Esterase,Urine Negative (Negative); Nitrite,Urine Negative (Negative); PH, Urine 5.5 (5.0-8.0); Protein,Urine Negative (Negative); Specific Gravity,Urine 1.028 (1.001-1.035); Urobilinogen,Urine <2.0 mg/dL (<2.0)
== END | disposition home or self-care (01) ==
LOC: LABPAT 10:58
PROVIDERS: ATTEND Orthopaedic Surgery Orthopaedic Surgery of the Spine
DX: Z01.818 Encounter for other preprocedural examination (principal); Z01.812 Encounter for preprocedural laboratory examination
CPT/HCPCS: 71046; 80053; 81003; 85025; 85610; 85730; 87070; 93005

== ENCOUNTER → 2020-05-01 | Outpatient (CLI) | payer BC ==
[~2020-05-01] MED LIST changes: -LACTATED RINGERS 1,000 ML IV SCH; -LIDOCAINE 1% 20 ML VIAL (10MG/ML) FOR IV START INTRADERMA PRN; +REGADENOSON 0.4 MG/5 ML SYRINGE IV ONE
--- NOTE | 2020-05-01 12:40 | ECHOF ---
Referral Reason:R94.31 Abnormal EKG MEASUREMENTS -------- HEIGHT: 180.3 cm WEIGHT: 154.2 kg BP: RVIDd: 3.0 cm (< 3.3) IVSd: 1.9 cm (0.6 - 1.1) LVIDd: 4.2 cm (3.9 - 5.3) LVPWd: 1.7 cm (0.6 - 1.1) IVSs: 2.1 cm LVIDs: 2.9 cm LVPWs: 2.0 cm LAESV Index (A-L): 10.60 ml/m Ao Diam: 3.7 cm (2.0 - 3.7) AV Cusp: 2.3 cm (1.5 - 2.6) MV EXCURSION: 16.009 mm (> 18.000) MV EF SLOPE: 109 mm/s (70 - 150) EPSS: 0.4 cm MV E [place]: 0.66 m/s MV DecT: 195 ms MV A [place]: 0.38 m/s MV E/A Ratio: 1.73 RAP: 5.00 mmHg RVSP: 17.13 mmHg FINDINGS -------- Sinus rhythm. This was a technically difficult study with suboptimal views. The left ventricular size is normal. There is moderate concentric left ventricular hypertrophy. O verall left ventricular systolic function is low-normal with, an EF between 50 - 55 %. The diastoli c filling pattern is normal for the age of the patient 7.31. The right ventricle is normal in size. Normal LA size by volume 22+/-6 ml/m2. The right atrium was not well visualized. xx ml of Lumason was utilized for enhancement of images. The aortic valve was not well visualized. There is no evidence of aortic regurgitation. There is no evidence of aortic stenosis. The mitral valve was not well visualized. No mitral regurgitation. The tricuspid valve was not well visualized. Mild tricuspid regurgitation present. There is no ev idence of pulmonary hypertension. The right ventricular systolic pressure, as measured by Doppler, is 17.13mmHg. The pulmonic valve was not well visualized. The aortic root size is normal. IVC Not well visulized. There is no pericardial effusion. CONCLUSIONS -------- 1. There is moderate concentric left ventricular hypertrophy. 2. Overall left ventricular systolic function is low-normal with, an EF between 50 - 55 %. 3. The diastolic filling pattern is normal for the age of the patient 7.31 4. Normal LA size by volume 22+/-6 ml/m2. 5. The aortic valve was not well visualized. 6. The mitral valve was not well visualized. 7. Mild tricuspid regurgitation present. 8. There is no pericardial effusion. FIXTURE DESIGNER: Mimi Villarreal RDCS
--- NOTE | 2020-05-01 12:58 | EST ---
EXERCISE STRESS AGE: 34 SEX: M HT: 5'11" WT: 340 lbs. PROTOCOL: Lexiscan Cardiolite STAGE: DURATION OF EXERCISE: HEART RATE REST: 78 BLOOD PRESSURE REST: 137/95 MAXIMUM HEART RATE ACHIEVED: 128 MAXIMUM BLOOD PRESSURE: 152/96 85% MPHR: 157 100% MPHR: 185 METS: INDICATIONS: Abnormal ECG. CLINICAL INFORMATION: Baseline rhythm is a sinus mechanism, rate of 78, normal axis and intervals, poor R- wave progression. Baseline blood pressure 137/95 mmHg. Patient received injection of Lexiscan. Electrocardiograph monitoring revealed no evidence of diagnostic ischemic ST deviation. Cardiolite was injected per protocol. CONCLUSION: 1. Nondiagnostic electrocardiograph stress testing. 2. Nuclear images will be reported separately. MMODL / IJN: [id number] /
--- NOTE | 2020-05-01 13:11 | NM ---
EXAMINATION TYPE: NM stress lexiscan cardiolite DATE OF EXAM: 05/01/2020 COMPARISON: NONE HISTORY: Abnormal EKG TECHNIQUE: After the intravenous administration of 10.9 mCi Tc 99m Sestamibi - Cardiolite resting SP ECT images acquired 45 minutes post injection. The patient received 0.4mg Lexiscan, 25.0 mCi Tc 99m Sestamibi - Stress images obtained [address] injection FINDINGS: Review of stress and rest SPECT images demonstrates no distinct perfusion abnormality. There is mild ly decreased area of the mid anteroseptal wall on color mapping, which is normal on polar map vein an d quantitative scoring, without meeting criteria for reversible perfusion. Gated analysis shows norm al wall motion with an estimated left ventricular ejection fraction of 50 %. TID 0.88 IMPRESSION: 1. No scintigraphic evidence for reversible ischemia. 2. Ejection fraction 50%.
== END | disposition home or self-care (01) ==
LOC: RADNMMAIN 07:50
PROVIDERS: ATTEND Family Medicine
DX: R94.31 Abnormal electrocardiogram [ECG] [EKG] (principal)
CPT/HCPCS: 93017; 93306; 78452; A9500; J2785; Q9950

== ENCOUNTER 2020-05-06 07:45 | Observation (INO) | payer BC, OTHER ==
[2020-05-04 14:12] VITALS: BMI 46.0
[~2020-05-06 07:45] MED LIST changes: +DEXAMETHASONE SOD PHOSPHATE 10 MG/ML 1 ML VIAL IV ONE; +MIDAZOLAM 2 MG/2 ML VIAL IV PRN; +ONDANSETRON 4 MG/2 ML VIAL IVP ONE; -REGADENOSON 0.4 MG/5 ML SYRINGE IV ONE; +SCOPOLAMINE 1.5MG/72HR PATCH TRANSDERM ONE; +ceFAZolin 1,000 MG in SODIUM CHLORIDE 0.9% IRRIGATIO 1,000 ML IRRIGATION ONE; +ceFAZolin 3 GM in SODIUM CHLORIDE 0.9% 100 ML IVPB ONE
[2020-05-06] MEDS: LACTATED RINGERS 1,000 ML IV SCH (08:34)
[2020-05-06 08:41] LABS: Glucose,Whole Blood 116 mg/dL (75-99)
[2020-05-06] MEDS ORDERED: ONDANSETRON 4 MG/2 ML VIAL ONE (08:41)
[2020-05-06] MEDS ORDERED: fentaNYL (PF) 50 MCG/ML 2 ML AMP ONE (09:44)
[2020-05-06] MEDS ORDERED: GLYCOPYRROLATE 0.2 MG/ML 2 ML VIAL ONE (09:44)
[2020-05-06] MEDS ORDERED: ROCURONIUM BROMIDE 10 MG/ML 5 ML VIAL IV ONE (09:44)
[2020-05-06] MEDS ORDERED: NEOSTIGMINE 1 MG/ML 10 ML VIAL ONE (09:44)
[2020-05-06] MEDS ORDERED: LIDOCAINE 1% INJ 10MG/ML (20 ML MDV) ONE (09:44)
[2020-05-06] MEDS ORDERED: SUCCINYLCHOLINE CHLORIDE VIAL 200 MG/10 ML VIAL IV ONE (09:44)
[2020-05-06] MEDS ORDERED: PROPOFOL 10 MG/ML 20 ML VIAL IV ONE (09:44)
[2020-05-06] MEDS ORDERED: MIDAZOLAM 2 MG/2 ML VIAL ONE (09:44)
[2020-05-06] MEDS ORDERED: THROMBIN (BOVINE) 5,000 UNIT VIAL TOPICAL ONE (09:53)
[2020-05-06] MEDS ORDERED: LIDOCAINE 0.5%-EPI 1:200,000 50 ML VIAL SQ ONE (09:53)
[2020-05-06] MEDS ORDERED: GELATIN SPONGE,ABSORB (LARGE) 1 EACH SPONGE TOPICAL ONE (09:53)
[2020-05-06 12:24] LABS: Glucose,Whole Blood 121 mg/dL (75-99)
[2020-05-06] MEDS ORDERED: LACTATED RINGERS 1,000 ML IV ONE (12:38)
--- NOTE | 2020-05-06 12:56 | FL ---
EXAMINATION TYPE: FL guidance operating room, XR lumbar spine 2 or 3V DATE OF EXAM: 05/06/2020 CLINICAL HISTORY: Lumbar fusion TECHNIQUE: Fluoroscopy COMPARISON: Lumbar radiograph 01/20/2020 FINDINGS: Fluoroscopic guidance was provided during procedure for performing physician. A total of 30 seconds of fluoroscopic time was utilized during the procedure and 2 spot images was acquired. Ple ase see operative report for additional details. IMPRESSION: As Above.
[2020-05-06] MEDS ORDERED: HYDROmorphone 1 MG/ML 1 ML SYRINGE IVP PRN (13:10)
[2020-05-06] MEDS ORDERED: BENZOCAINE/MENTHOL LOZENG 1 EACH LOZENGE MUCOUS MEM PRN (13:10)
[2020-05-06] MEDS ORDERED: MAGNESIUM HYDROXIDE 2,400 MG/10 ML CUP PO PRN (13:10)
--- NOTE | 2020-05-06 13:29 | P.OP ---
Date of Procedure: 05/06/20 Preoperative Diagnosis: Spondylolisthesis L4 5, low back pain, extremity radiculopathy bilaterally, right lower extremity weakness, degenerative disc disease, spondylolysis Postoperative Diagnosis: Same Procedure(s) Performed: Minimally invasive decompression and Facetfusion L4 5 Minimally invasiveTransforaminal interbody fusion L4 5 For a 360 fusion Computer navigation assisted fusion with placement of hardware L4 and L5 Use of C-arm guidance Discectomy for decompression L4 5 Placement of interbody allograft bone graft L4 5 Placement of interbody expandable cage L4 5 for fusion Harvesting of local autogenous bone graft Harvesting of bone marrow aspirate from the pedicle of L4 Anesthesia: GETA Pathology: none sent Condition: stable Disposition: PACU Description of Procedure: DESCRIPTION OF PROCEDURE(S): BRIEF OPERATIVE NOTE Preoperative Diagnosis: Spondylolisthesis L4 5, spondylosis, degenerative disc disease, lower extremity radiculopathy with weakness, foraminal stenosis L4 5 Postoperative Diagnosis: Same Procedure: Minimally invasive decompression and Facetfusion L4 5 Minimally invasiveTransforaminal interbody fusion L4 5 For a 360 fusion Computer navigation assisted fusion with placement of hardware L4 and L5 Use of C-arm guidance Discectomy for decompression L4 5 Placement of interbody allograft bone graft L4 5 Placement of interbody expandable cage L4 5 for fusion Harvesting of local autogenous bone graft Harvesting of bone marrow aspirate from the pedicle of L4 Use of bone graft extenders Surgeon: Dr. Banerjee Ski Base Trimmer: Sudarshan CEJA who is present throughout the entire the case persistence during positioning, dissection, exposure, visualization, and all crucial elements of the case as well as closure. Anesthesia: General anesthesia Estimated blood loss: Approximately 200 mL Complications: None apparent Components implanted: K2M minimally invasive [place] pedicle screw system withscrews measuring 6.5 mm in diameter to rods one ProLift Micro-expandable interbody cage with 10 mL of osteo amp bio4 bone graft substitute and 30 mL of the BX bone fibers to supplement the local autogenous bone graft and bone marrow aspirate Disposition: To recovery room in good stable condition. OPERATIVE INDICATIONS The patient has had severe issues at their lower extremity in her lower back For several years which has worsened for him over the past several months. Over the past few months however the patient had Increase in his pain at his back and his Bilateral lower extremities worse on the right lower extremity. he is having severe radicular symptoms at her right lower extremity with weakness. he is unable to obtain any comfort. We did aggressive conservative treatment with medications therapy and interventional pain management however she was not having any relief. he also showed evidence of a Significant dynamic listhesis with some Significantdynamic instability. The patient has been through conservative treatment. We discussed various treatment options including surgery, and the patient wishes to proceed with surgery We discussed the risk, patient's alternatives and benefits of surgery including but not limited to, risk of bleeding risk of infection, risk of need for further surgery, risk of decreased, loss of motion, muscle function, malunion nonunion, hardware failure, nerve damage, paralysis, heart attack, blindness and . She understood issues with the current pandemic and the possibility of exposure.During the course of preoperative evaluation patient was found have new onset diabetes and has been treated appropriately through his primary care physician. He has been able to stabilize his glucose levels and medical status overall. OPERATIVE SUMMARY After discussing all the risks, patient alternatives and benefits at length, the patient elected to proceed with surgical intervention, signed informed consent, and presented for their procedure. The patient was seen and examined in the preoperative holding area and the surgical site was marked. The patient was given antibiotics and brought to the operating room. The patient was sedated and intubated by anesthesia in standard fashion. The patient was positioned on to the operating room table in a prone position on the appropriate frame which was well-padded and well molded. We were careful to pad any bony prominences and pressure points. We were careful to maintain the patient's cervical spine and good neutral alignment and position throughout. The patient was prepped and draped in a normal standard fashion. An appropriate timeout and keystone protocol performed. We were able to proceed with the surgery. The local wound area was infiltrated with local anesthetic. I was able place bony reference screws for the navigation device at the right iliac crest through small stab incisions. I was able utilize C-arm guidance to establish appropriate position over the pedicles bilaterally at the appropriate levelsAt L4 5 . With the appropriate levels confirmed was able to make small stab incisions over the appropriate pedicle sites bilaterally. Utilizing C-arm and the computer navigation device I was able to establish bony landmarks at the right iliac crest for a bony reference point for the navigation device. I was able to establish a Jamshidi needle over the lateral aspect of the pedicle and advanced the trocar into the pedicle being careful not to breech superiorly inferiorly medially or laterally using computer navigation device. Position was confirmed regularly with AP and lateral images on C-arm and with the computer navigation deviceAt L4 and L5. I was able to establish the trocar into the pedicle appropriately into the posterior aspect of the vertebral body bilaterally at the appropriate levels. This was done at each of the pedicle positions and each of the vertebrae. At L4 on the right I withdrew Approximately 30 mL of bone marrow aspirate for use later in the case to supplement the local autogenous bone graft and allograft bone graft. I was able place the guidewire into the trocar and into the vertebral body appropriately under C-arm guidance. Dissection was taken down over the wire to the appropriate starting position for the screw placed. The appropriate length screw was chosen, threaded over the gu idewire and screwed appropriately into the pedicle and vertebral body under C- arm guidance in excellent alignment and position with good bony purchase. This is done at each of the screw sites at the appropriate levels. With the screws intact I extended the incision to connect the screw hole sites on the most symptomatic side on the right. I dissected down to establish access over the pars and lamina to the base of the spinous process. I was able to expose the facet joint. The capsule the facet was taken down and showed some facet arthrosis at the joint. I was able to use a combination of curettes and Kerrison rongeurs and a high-speed drill to take down the facet joint and do a facetectomy. I was able get excellent foraminal decompression and central decompression with undermining across midline to perform a laminectomy centrally and contralaterally. As able get good central decompression. The ligamentum flavum was taken down to further decompress centrally and at bilateral neural foramen. I was able to expose the disc space and visualize the traversing nerve root. Note was made of some disc protrusion and disc herniation that was adherent to the traversing nerve root at the level causing further compression of the nerve root. I was able to establish a annulotomy at the appropriate level protecting soft tissue and neural structures. Note was made of some disc desiccation at the disc and evidence of the prior discectomy. I performed a complete discectomy with accommodation of curettes and rasps and scrapers. I was able get good endplate preparation at the disc space. I sized for the appropriate size interbody spacer protecting the soft tissue and neural structures. The wound was copiously irrigated and suctioned dry. There is no evidence of any dural tear or leak.There is a small dural abrasion without any evidence of leak. Attention was split some small amount of Tisseel over the area. I was able to pack the disc space with local autogenous bone graft as well as a small amount of bone graft which was also placed into the interbody cage itself. Protecting the soft tissue structures and neural structures I was able place the interbody cage in good alignment and good position. I used expandable cage and I was able to expand cage appropriately within the interbody space. Expanded to get a good fit with good and torqued appropriately. He was evaluated and foundwith good fit and fill at the interbody spaceAt L4 5. His issues was confirmed with C-arm guidance. Good hemostasis maintained. There is no evidence of any dural tear or leak. The wound was irrigated and suctioned dry. With the hardware intact, intraoperative C-arm imaging was again taken which showed good alignment and position of the hardware at the appropriate levels. We were then able to measure, contour and place the rods and appropriate hardware bilaterally. I was able to place capcrews, tighten them down, and torque them with the torque screwdriver appropriately. With this intact I was able to place the local autogenous bone graft with additional bone graft enhancer as necessary into the posterior lateral gutters over the decorticated transverse processes and facet joints on the contralateral side. The remainder of the bone graft was placed over the facet joint on the contralateral side after taking down the facet joint capsule. With the bone graft intact, a stable construct, and good decompression at the appropriate levels, we were able to proceed with closure. Good hemostasis was maintained. There is no evidence of dural tear or leak. The fascia was closed for a watertight closure. he subcuticular tissue was closed with absorbable suture. The wound was cleaned and dried and dressed with the appropriate dressing. The drapes were broken down. The patient was gently rolled back onto their hospital bed being careful to maintain their cervical spine and good neutral alignment and position. They were woken up by anesthesia, extubated, and brought to the recovery room in good stable condition. The patient will be admitted to the hospital for appropriate postoperative care, medical management and monitoring. We will continue to follow them closely about the postoperative course.
[2020-05-06 14:02] LABS: Glucose,Whole Blood 149 mg/dL (75-99)
[2020-05-06] MEDS: HYDROmorphone 0.5 MG/0.5 ML SYRINGE IVP PRN ×2 (14:06→14:11)
[2020-05-06] MEDS ORDERED: ONDANSETRON 4 MG/2 ML VIAL IVP ONE (14:36)
[2020-05-06] MEDS: SODIUM CHLORIDE 0.9% 1,000 ML IV SCH (16:15)
[2020-05-06] MEDS: HYDROcodone/APAP 5-325MG 1 EACH TAB PO PRN ×2 (16:16→23:45)
[2020-05-06 17:12] LABS: Glucose,Whole Blood 145 mg/dL (75-99)
[2020-05-06] MEDS: ceFAZolin 3 GM in SODIUM CHLORIDE 0.9% 100 ML IVPB SCH (17:41)
[2020-05-06] MEDS: metFORMIN 500 MG TAB PO SCH (17:47)
[2020-05-06] MEDS: ONDANSETRON 4 MG/2 ML VIAL IVP PRN (18:41)
[2020-05-06 20:05] LABS: Glucose,Whole Blood 148 mg/dL (75-99)
[2020-05-06] MEDS ORDERED: metFORMIN 500 MG TAB PO SCH (21:00)
--- NOTE | 2020-05-06 23:58 | P.CONS ---
History of Present Illness - Reason for Consult Consult date: 05/06/20 Medical management of hypertension and other medical problems - Chief Complaint Status post L4-L5 lumbar fusion surgery. - History of Present Illness Patient is a 33-year-old male with a known history of hypertension, obstructive sleep apnea on CPAP at home and diabetes type 2 [id number], morbid obesity, history of lower extremity radiculopathy symptoms for the past 6 to 8 months and right lower extremity weakness, spondylosis was admitted to the hospital for elective lumbar fusion surgery L4-L5. Patient tolerated procedure very well. Currently lying in the bed and complains of discomfort in the lower back. No fever no chills. No nausea vomiting abdominal pain. No cough or sputum production. No headache or dizziness or lightheadedness. Review of Systems Constitutional: Patient denies any fever or chills . No generalized weakness or weight loss. Abdomen: Patient denied nausea vomiting and diarrhea and abdominal pain. Cardiovascular: Patient denies any chest pain or short of breath no palpitations. Respiratory: patient denied any cough is from production. No shortness of breath Neurologic: Patient denied any numbness or tingling headache. Musculoskeletal: Patient denies any complaints of joint swelling or deformity. Lower back pain. Skin: Negative Psychiatric: Negative Endocrine: No heat or cold intolerance. No recent weight gain. Genitourinary: No dysuria or hematuria. All other 14 point ROS negative except the above Past Medical History Past Medical History: Diabetes Mellitus, Hypertension, Musculoskeletal Disorder, Sleep Apnea/CPAP/BIPAP Additional Past Medical History / Comment(s): KIDNEY STONES, uses CPAP, numbness left thigh, pain down right leg to foot, steroids >month ago, newly dx. w/diabetes-just started meds History of Any Multi-Drug Resistant Organisms: None Reported Past Surgical History: Ear Surgery, Orthopedic Surgery Additional Past Surgical History / Comment(s): RT ARM-PLATES AND SCREWS, RT EAR RECONSTRUCTION SX(MULTIPLE SX). lithotripsy 2014, 05/06/20 lumbar fusion L4-L5 Dr Banerjee Past Anesthesia/Blood Transfusion Reactions: No Reported Reaction Additional Past Anesthesia/Blood Transfusion Reaction / Comm: CLAUSTROPHOBIA Past Psychological History: No Psychological Hx Reported Smoking Status: Former smoker Past Alcohol Use History: Rare Additional Past Alcohol Use History / Comment(s): smoked 2 years, 1pk/day, quit smoking 2007 Past Drug Use History: None Reported - Past Family History Father Family Medical History: Myocardial Infarction ([place]), Thyroid Disorder Additional Family Medical History / Comment(s): EAR PROBLEMS, Mother Family Medical History: Hyperlipidemia Medications and Allergies Home Medications Medication Instructions Recorded Confirmed Type hydroCHLOROthiazide [Hydrodiuril] 25 mg PO DAILY 08/16/15 05/06/20 History Dulaglutide [Trulicity] 0.75 mg SQ WE 05/04/20 05/06/20 History metFORMIN HCL [Glucophage] 500 mg PO BID 05/04/20 05/06/20 History Allergies Allergy/AdvReac Type Severity Reaction Status Date / Time tamsulosin [From Flomax] AdvReac Rapid Verified 05/06/20 08:18 Heart Rate steroids Allergy Rapid Uncoded 05/06/20 08:18 Heart Rate Physical Exam Vitals: Vital Signs Temp Pulse Resp BP Pulse Ox 05/06/20 16:18 97.7 F 97 20 135/87 95 05/06/20 15:30 92 16 102/59 99 05/06/20 15:00 68 14 111/66 100 05/06/20 14:30 95 16 116/58 98 05/06/20 14:00 87 14 142/65 98 05/06/20 13:45 90 16 138/91 94 L 05/06/20 13:30 90 14 135/86 66 L 05/06/20 13:18 97.1 F L 104 H 18 127/75 98 05/06/20 08:21 98.0 F 96 16 144/83 97 Intake and Output 05/06/20 05/06/20 05/07/20 14:59 22:59 06:59 Intake Total 1201 Output Total 300 Balance 901 Intake: IV 1201 Output: Urine 100 Estimated Blood Loss 200 Other: Voiding Method Toilet Weight 151.2 kg 151.2 kg PHYSICAL EXAMINATION: Patient is lying in the bed comfortably, no acute distress, awake alert and oriented.. HEENT: Normocephalic. Neck is supple. Pupils reactive. Nostrils clear. Oral cavity is moist. Ears reveal no drainage. Neck reveals no JVD, carotid bruits, or thyromegaly. CHEST EXAMINATION: Trachea is central. Symmetrical expansion. Lung vela clear to auscultation and percussion. CARDIAC: Normal S1, S2 with no gallops. No murmurs ABDOMEN: Soft. Bowel sounds normal. No organomegaly. No abdominal bruits. Extremities: reveal no edema. No clubbing or cyanosis Neurologically awake, alert, oriented x3 with well-coordinated movements. No focal deficits noted Skin: No rash or skin lesions. Psychiatric: Coperative. Nonsuicidal Musculoskeletal: No joint swelling or deformity. Normal range of motion. Results Labs: Abnormal Lab Results - Last 24 Hours (Table) 05/06/20 05/06/20 05/06/20 Range/Units 08:33 12:22 14:00 POC Glucose (mg/dL) 116 H 121 H 149 H (75-99) mg/dL 05/06/20 05/06/20 Range/Units 17:10 19:57 POC Glucose (mg/dL) 145 H 148 H (75-99) mg/dL Assessment and Plan Assessment: Status post lumbar fusion surgery postoperative day 0 Hypertension blood pressure is on the lower side now. Hold hydrochlorothiazide. Diabetes type 2 [id number] Obstructive sleep apnea on CPAP History of nephrolithiasis and lithotripsy Lumbar radiculopathy symptoms for the past 6 to 8 months Previous history of smoking Morbid obesity with BMI 46.5 DVT prophylaxis no heparin due to spinal surgery. Plan: Patient will be continued on pain management, bowel regimen and IV hydration. Encourage incentive spirometry and PT OT. Continue with insulin sliding scale and blood pressure medications are on hold. We will continue to follow with you and further recommendations based on the clinical course. Thank you for your consult. Time with Patient: Greater than 30
[2020-05-07] MEDS: ceFAZolin 3 GM in SODIUM CHLORIDE 0.9% 100 ML IVPB SCH (00:59)
[2020-05-07] MEDS ORDERED: ceFAZolin 3 GM in SODIUM CHLORIDE 0.9% 100 ML IVPB ONE (01:00)
[2020-05-07] MEDS: HYDROcodone/APAP 5-325MG 1 EACH TAB PO PRN ×4 (05:08→20:49)
[2020-05-07] MEDS: SODIUM CHLORIDE 0.9% 1,000 ML IV SCH (05:10)
[2020-05-07 07:14] LABS: Glucose,Whole Blood 152 mg/dL (75-99)
[2020-05-07 08:12] LABS: African American GFR (CKD) >90 (>60 ml/min/1.73 sqM); Anion Gap 6 mmol/L; Blood Urea Nitrogen 8 mg/dL (9-20); Calcium 8.2 mg/dL (8.4-10.2); Carbon Dioxide 27 mmol/L (22-30); Chloride 102 mmol/L (98-107); Glucose 144 mg/dL (74-99); Non-African American GFR(CKD) >90 (>60 ml/min/1.73 sqM); Potassium 3.6 mmol/L (3.5-5.1); Sodium 135 mmol/L (137-145)
[2020-05-07] MEDS: SENNOSIDES-DOCUSATE SODIUM 1 EACH TAB PO SCH (08:23)
[2020-05-07] MEDS: metFORMIN 500 MG TAB PO SCH ×2 (08:23→16:51)
[2020-05-07] MEDS: LACTATED RINGERS 1,000 ML IV SCH (08:24)
[2020-05-07 08:30] LABS: Basophils % (A) 0 %; Eosinophils % (A) 1 %; Lymphocytes # (A) 1.3 k/uL (1.0-4.8); Lymphocytes % (A) 18 %; MCH 30.9 pg (25.0-35.0); Mean Platelet Volume 7.9; Monocytes # (A) 0.6 k/uL (0-1.0); Monocytes % (A) 9 %; Neutrophils % (A) 71 %; Platelet Count 151 k/uL (150-450); RBC 4.29 m/uL (4.30-5.90); RDW 13.5 % (11.5-15.5); WBC 7.1 k/uL (3.8-10.6)
[2020-05-07 08:52] LABS: HGB 13.3 gm/dL (13.0-17.5)
[2020-05-07] MEDS ORDERED: hydroCHLOROthiazide 25 MG TAB PO SCH (09:00)
[2020-05-07] MEDS: HYDROmorphone 0.5 MG/0.5 ML SYRINGE IVP PRN ×2 (10:03→14:03)
--- NOTE | 2020-05-07 10:58 | P.PN ---
Progress Note - Text Progress Note Date: 05/07/20 Postoperative day #1 Patient is seen and examined today at bedside. The patient has some pain around the surgical site as expected. Pain is being controlled with medication. Physical Exam Afebrile with stable vital signs Abdomen is soft nontender. Chest has good excursion deep and space expiration He is up in a chair. The nurse feels he is doing better than he thinks he is. I would agree. The incision site is clean dry and intact. No erythema there is no purulence. Extremities have not had neurologic change from prior to surgery. He has sustained dorsal flexion plantar flexion and EHL intact. Calves and thighs were soft nontender without evidence of DVT. Assessment/Plan Postoperative day #1 status post minimally invasive decompression and fusion L4 5 for a dynamic spondylolisthesis with stenosis lower extremity radiculopathy Patient is progressing as expected from the surgery. He is actually doing pretty well with his mobility and has been up in a chair. We will continue to increase the patient's mobilization with therapy. Hopefully they will be able be discharged home another day or 2. We will continue pain control with oral or IV medications. We'll continue to follow patient closely.
[2020-05-07 11:14] LABS: Glucose,Whole Blood 190 mg/dL (75-99)
--- NOTE | 2020-05-07 13:18 | P.PN ---
Subjective Progress Note Date: 05/07/20 Principal diagnosis: Patient is a 33-year-old male with a known history of hypertension, obstructive sleep apnea on CPAP at home and diabetes type 2 [id number], morbid obesity, history of lower extremity radiculopathy symptoms for the past 6 to 8 months and right lower extremity weakness, spondylosis was admitted to the hospital for elective lumbar fusion surgery L4-L5. Patient tolerated procedure very well. Currently lying in the bed and complains of discomfort in the lower back. No fever no chills. No nausea vomiting abdominal pain. No cough or sputum production. No headache or dizziness or lightheadedness. 05/07/2020 Patient is seen and evaluated in follow-up currently sitting in the chair and continues to have some discomfort of the lower back. Patient is status post lumbar fusion of the L4/L5 with Dr. Banerjee. Patient was up and working with [employer] [facility] therapy today. Patient has incentive spirometer at the bedside and discussed with him about continuing to use at least 10 times every hour while awake. Patient currently denies any difficulties urinating. Patient denies any chest pain, shortness of breath, or palpitations. Patient is tolerating diet with no reports of nausea or vomiting noted. Will continue to follow along closely with orthopedic surgery. Objective - Vital Signs Vital signs: Vital Signs Temp 98 F 05/07/20 11:55 Pulse 103 H 05/07/20 11:55 Resp 17 05/07/20 11:55 BP 122/75 05/07/20 11:55 Pulse Ox 97 05/07/20 11:55 Intake & Output 05/06/20 05/07/20 05/07/20 18:59 06:59 18:59 Intake Total 1201 1825 Output Total 300 100 Balance 901 1725 Weight 151.2 kg Intake: IV 1201 Intake, IV Titration 225 Amount Sodium Chloride 0.9% 1, 225 000 ml @ 75 mls/hr IV . [id number] [facility] Rx#:[id number] Oral 1600 Output: Urine 100 100 Estimated Blood Loss 200 Other: Voiding Method Toilet Toilet Toilet - Exam Patient is sitting up in the chair with some discomfort noted of the lower back, no acute distress, awake alert and oriented.. HEENT: Normocephalic. Neck is supple. Pupils reactive. Nostrils clear. Oral cavity is moist. Ears reveal no drainage. Neck reveals no JVD, carotid bruits, or thyromegaly. CHEST EXAMINATION: Trachea is central. Symmetrical expansion. Lung vela clear to auscultation and percussion. CARDIAC: Normal S1, S2 with no gallops. No murmurs ABDOMEN: Soft. Obese. Bowel sounds normal. No organomegaly. No abdominal bruits. Extremities: reveal no edema. No clubbing or cyanosis Neurologically awake, alert, oriented x3 with well-coordinated movements. No focal deficits noted Skin: No rash or skin lesions. Psychiatric: Cooperative. Non-suicidal Musculoskeletal: No joint swelling or deformity. Normal range of motion. - Labs CBC & Chem 7: 05/07/20 07:18 05/07/20 07:18 Labs: Abnormal Lab Results - Last 24 Hours (Table) 05/06/20 05/06/20 05/06/20 Range/Units 14:00 17:10 19:57 RBC (4.30-5.90) m/uL Sodium (137-145) mmol/L BUN (9-20) mg/dL Glucose (74-99) mg/dL POC Glucose (mg/dL) 149 H 145 H 148 H (75-99) mg/dL Calcium (8.4-10.2) mg/dL 05/07/20 05/07/20 05/07/20 Range/Units 07:13 07:18 07:18 RBC 4.29 L (4.30-5.90) m/uL Sodium 135 L (137-145) mmol/L BUN 8 L (9-20) mg/dL Glucose 144 H (74-99) mg/dL POC Glucose (mg/dL) 152 H (75-99) mg/dL Calcium 8.2 L (8.4-10.2) mg/dL 05/07/20 Range/Units 11:12 RBC (4.30-5.90) m/uL Sodium (137-145) mmol/L BUN (9-20) mg/dL Glucose (74-99) mg/dL POC Glucose (mg/dL) 190 H (75-99) mg/dL Calcium (8.4-10.2) mg/dL Assessment and Plan Assessment: Status post lumbar fusion surgery postoperative day 1 Hypertension blood pressure is on the lower side now. Hold hydrochlorothiazide. Diabetes type 2 [id number] Obstructive sleep apnea on CPAP History of nephrolithiasis and lithotripsy Lumbar radiculopathy symptoms for the past 6 to 8 months Previous history of smoking Morbid obesity with BMI 46.5 DVT prophylaxis no heparin due to spinal surgery, early ambulation. Plan: Patient will be continued on pain management, and bowel regimen. Will continue to follow along closely with orthopedic surgery. Discussed with the patient about increasing activity as tolerated and has worked with PT/OT today. Also discussed with the patient about continuing to use incentive spirometer at least 10 times every hour while awake. Patient does have a history of diabetes and is currently maintained on sliding scale and will continue at this time. We'll continue to monitor vital signs and labs closely. Blood pressure became she currently on hold as patient was slightly hypotensive and will monitor closely. Further recommendations to follow.
[2020-05-07 14:49] LABS: Hemoglobin A1C 7.6 % (4.0-6.0)
[2020-05-07 17:10] LABS: Glucose,Whole Blood 163 mg/dL (75-99)
[2020-05-07] MEDS: INSULIN ASPART (NovoLOG) 100 UNIT/ML VIAL SQ SCH ×2 (17:58→20:51)
[2020-05-07 20:26] LABS: Glucose,Whole Blood 176 mg/dL (75-99)
[2020-05-08] MEDS: ONDANSETRON 4 MG/2 ML VIAL IVP PRN (01:19)
[2020-05-08] MEDS: HYDROmorphone 0.5 MG/0.5 ML SYRINGE IVP PRN (01:27)
[2020-05-08] MEDS: HYDROcodone/APAP 5-325MG 1 EACH TAB PO PRN ×5 (03:37→20:23)
[2020-05-08] MEDS: SODIUM CHLORIDE 0.9% 1,000 ML IV SCH ×3 (05:27→17:59)
[2020-05-08] MEDS: LACTATED RINGERS 1,000 ML IV SCH ×2 (05:52→20:47)
[2020-05-08 07:06] LABS: Glucose,Whole Blood 118 mg/dL (75-99)
[2020-05-08] MEDS: metFORMIN 500 MG TAB PO SCH ×2 (07:34→17:58)
[2020-05-08] MEDS: SENNOSIDES-DOCUSATE SODIUM 1 EACH TAB PO SCH (07:34)
[2020-05-08] MEDS: INSULIN ASPART (NovoLOG) 100 UNIT/ML VIAL SQ SCH ×4 (07:36→20:38)
--- NOTE | 2020-05-08 09:00 | P.PN ---
Progress Note - Text Progress Note Date: 05/08/20 Orthopedic Spine: History of present illness: Patient is a pleasant 34-year-old male who is seen and examined at the bedside following posterior lateral decompression and fusion performed Monday. Patient states they are doing well postsurgically. His pain has been better controlled since being seen him yesterday. He does continue pain at the surgical sites. He is not currently experiencing any lower extremity weakness or radiculopathy bilaterally. He has had significant difficulty with mobilization is requiring assistance to get out of bed. He was able to walk with a walker with therapy yesterday. He has been able to reduce his IV Dilaudid but continues to take it occasionally. He continues with oral [place]. Currently does not complain of nausea, vomiting, fever, or chills. Patient is eating and voiding freely without difficulty. Patient is being seen and examined by medicine for his other medical diagnoses including type 2 diabetes, hypertension, obstructive sleep apnea, morbid obesity, with history of smoking and nephrolithiasis with lithotripsy. Physical Exam Lumbar Fusion: Status post surgical day number 2 Patient is awake, alert, and oriented 3 Vital signs stable Good chest excursion with deep inspiration and expiration Difficulty with rolling over in bed Dorsiflexion, plantarflexion, and extensor hallucis longus positive sustained bilaterally No signs or symptoms of DVT; no calf pain; pneumatic cuffs intact bilateral lower extremities Dressings are clean, dry, and intact; no erythema, purulence, or signs of infection No pain with around the surgical sites Neurovascularly intact bilaterally lower extremities Assessment: Status post L4-5 minimally invasive posterior lateral decompression and fusion with transforaminal lumbar interbody fusion Low back pain L4-5 spondylolisthesis Lumbar degenerative disc disease Lumbar spondylolysis Type 2 diabetes Hypertension Obstructive sleep apnea Morbid obesity History of smoking History of nephrolithiasis with lithotripsy. Plan: 1. Ambulate as tolerated; work with Physical Therapy to increase mobilization 2. Continue pain control with IV and oral medications; we will continue to wean off of IV Dilaudid in anticipation for discharge home over the next 1-2 days 3. Dressings to remain intact with optifoam; patient may shower with dressings intact 4. Medical management can continue to manage patient for patient's other medical issues including type 2 diabetes, hypertension, and obstructive sleep apnea 5. We will continue to follow the patient closely; if the patient continues to improve, we may plan for discharge home 1-2 days 6. Patient can follow-up with Sudarshan Ray PA-C or Dr. Ronal Banerjee at [facility] in 2-3 weeks following discharge
[2020-05-08 11:27] LABS: Glucose,Whole Blood 155 mg/dL (75-99)
[2020-05-08] MEDS: FAMOTIDINE 20 MG TAB PO SCH ×2 (13:23→20:23)
--- NOTE | 2020-05-08 13:36 | P.PN ---
Subjective Progress Note Date: 05/08/20 Principal diagnosis: Patient is a 33-year-old male with a known history of hypertension, obstructive sleep apnea on CPAP at home and diabetes type 2 [id number], morbid obesity, history of lower extremity radiculopathy symptoms for the past 6 to 8 months and right lower extremity weakness, spondylosis was admitted to the hospital for elective lumbar fusion surgery L4-L5. Patient tolerated procedure very well. Currently lying in the bed and complains of discomfort in the lower back. No fever no chills. No nausea vomiting abdominal pain. No cough or sputum production. No headache or dizziness or lightheadedness. 05/07/2020 Patient is seen and evaluated in follow-up currently sitting in the chair and continues to have some discomfort of the lower back. Patient is status post lumbar fusion of the L4/L5 with Dr. Banerjee. Patient was up and working with [employer] therapy today. Patient has incentive spirometer at the bedside and discussed with him about continuing to use at least 10 times every hour while awake. Patient currently denies any difficulties urinating. Patient denies any chest pain, shortness of breath, or palpitations. Patient is tolerating diet with no reports of nausea or vomiting noted. Will continue to follow along closely with orthopedic surgery. 05/08/2020 Patient is seen and evaluated in follow-up. Patient is currently sitting up in the chair and appears to be much more comfortable than yesterday. Patient states his pain is manageable at this time. Patient is passing gas although no bowel movement at this time. Patient is also having some acid indigestion and will order Pepcid and Protonix. Patient continues to use incentive spirometer and has been increasing activity as tolerated. Will continue to follow along closely with orthopedic surgery. Anticipated discharge in 1-2 days. Review of systems: Constitutional: No reports of fatigue, fever, or chills Cardiovascular: No reports of chest pain or palpitations Respiratory: No reports of shortness of breath or cough GI: No reports of nausea, vomiting, or diarrhea, reports indigestion : No reports of dysuria or retention Neurovascular: No reports of weakness or numbness All medications have been reviewed Objective - Vital Signs Vital signs: Vital Signs Temp 97.7 F 05/08/20 11:23 Pulse 109 H 05/08/20 11:23 Resp 20 05/08/20 11:23 BP 121/83 05/08/20 11:23 Pulse Ox 94 L 05/08/20 11:23 Intake & Output 05/07/20 05/08/20 05/08/20 18:59 06:59 18:59 Intake Total 600 225 Output Total 1999 Balance 600 -1775 Intake: Intake, IV Titration 600 225 Amount Sodium Chloride 0.9% 1, 600 225 000 ml @ 75 mls/hr IV . [id number] PAULINA Rx#:[id number] Output: Urine 1999 Other: Voiding Method Toilet Toilet Toilet # Bowel Movements 0 - Exam Patient is sitting up in the chair, no acute distress, awake alert and oriented x3, well-developed, well-nourished, obese. HEENT: Normocephalic. Neck is supple. Pupils reactive. Nostrils clear. Oral cavity is moist. Ears reveal no drainage. Neck reveals no JVD, carotid bruits, or thyromegaly. CHEST EXAMINATION: Trachea is central. Symmetrical expansion. Lung vela clear to auscultation and percussion. CARDIAC: Normal S1, S2 with no gallops. No murmurs ABDOMEN: Soft. Obese. Bowel sounds normal. No organomegaly. No abdominal bruits. Extremities: reveal no edema. No clubbing or cyanosis Neurologically awake, alert, oriented x3 with well-coordinated movements. No focal deficits noted Skin: No rash or skin lesions. Psychiatric: Cooperative. Non-suicidal Musculoskeletal: No joint swelling or deformity. Normal range of motion. - Labs CBC & Chem 7: 05/07/20 07:18 05/07/20 07:18 Labs: Abnormal Lab Results - Last 24 Hours (Table) 05/07/20 05/07/20 05/07/20 Range/Units 07:18 17:09 20:25 POC Glucose (mg/dL) 163 H 176 H (75-99) mg/dL Hemoglobin A1c 7.6 H (4.0-6.0) % 05/08/20 05/08/20 Range/Units 07:04 11:25 POC Glucose (mg/dL) 118 H 155 H (75-99) mg/dL Hemoglobin A1c (4.0-6.0) % Assessment and Plan Assessment: Status post lumbar fusion surgery postoperative day 2 Hypertension blood pressure is on the lower side now. Hold hydrochlorothiazide. Diabetes type 2 [id number] Obstructive sleep apnea on CPAP History of nephrolithiasis and lithotripsy Lumbar radiculopathy symptoms for the past 6 to 8 months Previous history of smoking Morbid obesity with BMI 46.5 DVT prophylaxis no heparin due to spinal surgery, early ambulation. GI prophylaxis: Protonix and Pepcid Full code Plan: Patient will be continued on pain management, and bowel regimen. Will continue to follow along closely with orthopedic surgery. Discussed with the patient about increasing activity as tolerated PT/OT following. Patient continues to use incentive spirometer and encouraged. Patient does have a history of diabetes and is currently maintained on sliding scale and will continue at this time. We'll continue to monitor vital signs and labs closely. Blood pressure being monitored closely and normally takes hydrochlorothiazide although on hold as patient was slightly hypotensive and will monitor closely. PPI added as patient was having some indigestion noted. Patient is passing gas although no reports of bowel movement at this time. Further recommendations to follow. Patient anticipates discharge in 1-2 days. Thank you for this consultation and we'll continue to follow along with you during hospitalization.
[2020-05-08] MEDS: PANTOPRAZOLE 40 MG TABLET PO SCH (16:22)
[2020-05-08 17:10] LABS: Glucose,Whole Blood 123 mg/dL (75-99)
[2020-05-08 20:27] LABS: Glucose,Whole Blood 144 mg/dL (75-99)
[2020-05-09] MEDS: HYDROcodone/APAP 5-325MG 1 EACH TAB PO PRN ×4 (00:20→11:32)
[2020-05-09 05:48] VITALS: BP 129/89; PULSE 97; RESP 18; TEMP 97.4
[2020-05-09 07:16] LABS: Glucose,Whole Blood 119 mg/dL (75-99)
[2020-05-09] MEDS: INSULIN ASPART (NovoLOG) 100 UNIT/ML VIAL SQ SCH (08:34)
[2020-05-09] MEDS: PANTOPRAZOLE 40 MG TABLET PO SCH (08:42)
[2020-05-09] MEDS: FAMOTIDINE 20 MG TAB PO SCH (08:42)
[2020-05-09] MEDS: SENNOSIDES-DOCUSATE SODIUM 1 EACH TAB PO SCH (08:42)
[2020-05-09] MEDS: metFORMIN 500 MG TAB PO SCH (08:42)
[2020-05-09] MEDS: SODIUM CHLORIDE 0.9% 1,000 ML IV SCH (11:23)
--- NOTE | 2020-05-09 12:19 | P.DS ---
Providers Date of admission: 05/06/20 19:29 Expected date of discharge: 05/09/20 Attending physician: Isma Banerjee Consults: 05/06/20 13:11 Consult Physician Routine Consulting Provider: Damaso Fisher Consult Reason/Comments: Medical management Do you want consulting provider notified?: Yes Primary care physician: Sudarshan Oropeza MD - Discharge Diagnosis(es) (1) Spondylolisthesis at L4-L5 level Current Visit: Yes Status: Acute (2) Low back pain Current Visit: Yes Status: Acute (3) Radiculopathy with lower extremity symptoms Current Visit: Yes Status: Acute (4) Lumbar facet arthropathy Current Visit: Yes Status: Acute (5) Lumbar degenerative disc disease Current Visit: Yes Status: Acute (6) Type 2 diabetes mellitus Current Visit: Yes Status: Acute (7) Hypertension Current Visit: Yes Status: Acute (8) Morbid obesity with BMI of 45.0-49.9, adult Current Visit: Yes Status: Acute (9) S/P lumbar fusion Current Visit: Yes Status: Acute Hospital Course: This is a pleasant 34-year-old male who presented with L4-5 dynamic spondylolisthesis, low back pain, lower extremity radiculopathy, lumbar spondylosis, degenerative disc disease who failed outpatient conservative therapy. He was admitted for an L4-5 minimally invasive posterior lateral decompression and fusion with transforaminal lumbar interbody fusion. The patient tolerated the procedure well and did well postoperatively. His pain has been well-controlled oral [place]. He denies any lower extremity weakness or radiculopathy postoperatively. He does have some pain at the surgical sites. He has been able to transfer today bedside chair and ambulate to the restroom. He has been able to shower. He is ready for discharge home today. Condition on day of discharge stable. Patient will be discharged home. Patient was cleared preoperatively for surgery by Dr. Oropeza. Patient currently denies any nausea, vomiting, fever, or chills. Patient is eating and voiding freely without difficulty. Patient may shower Optifoam dressings intact. Patient may remove Optifoam dressing in 3 days and shower without a dressing at that time. Patient should refrain from driving until at least after their first follow-up appointment in the office. Patient should avoid excessive bending, lifting, and twisting; no lifting greater than 10 pounds. Patient's past medical history includes 2 diabetes, hypertension, and ordered obesity. MAPS has been reviewed. An "Opiod Start Talking" Form has been signed and placed in the patient's chart. A prescription has been written for [place] 5 mg/325 mg 1 tab every 4 hours as needed for pain, dispense #42. Patient should avoid anti-inflammatories of the next 6 weeks postoperatively. Patient may resume all previous he prescribed home medications. Physical Exam on day of discharge: Patient is awake, alert, and oriented 3 Vital signs stable Good chest excursion with deep inspiration and expiration Abdomen soft nontender No signs or symptoms of DVT; no calf pain Extensor hallucis longus, plantarflexion, and dorsiflexion positive sustained bilateral lower extremities Surgical sites are clean, dry, and intact; no erythema, purulence, or signs of infection Optifoam dressings intact Procedures: L4-5 minimally invasive posterior lateral decompression and fusion with transforaminal lumbar interbody fusion Patient Condition at Discharge: Stable Plan - Discharge Summary Discharge Rx Participant: Yes New Discharge Prescriptions: New HYDROcodone/APAP 5-325MG [[place] 5] 1 each PO Q4HR PRN #42 tab PRN Reason: Pain No Action hydroCHLOROthiazide [Hydrodiuril] 25 mg PO DAILY metFORMIN HCL [Glucophage] 500 mg PO BID Dulaglutide [Trulicity] 0.75 mg SQ WE Discharge Medication List hydroCHLOROthiazide [Hydrodiuril] 25 mg PO DAILY 08/16/15 [History] Dulaglutide [Trulicity] 0.75 mg SQ WE 05/04/20 [History] metFORMIN HCL [Glucophage] 500 mg PO BID 05/04/20 [History] HYDROcodone/APAP 5-325MG [[place] 5] 1 each PO Q4HR PRN #42 tab 05/07/20 [Rx] Follow up Appointment(s)/Referral(s): Isma Banerjee DO [Doctor of Osteopathic Medicine] - 2 Weeks Activity/Diet/Wound Care/Special Instructions: Keep incision sites clean. May shower with waterproof Optifoam intact. Do not soak in a tub. After 72 hours postoperatively, patient May remove dressing and then may shower with area uncovered. May ambulate as tolerated. Avoid heavy or rigorous activity. No repetitive bending twisting or lifting. No overhead work. Discharge Disposition: HOME SELF-CARE
== END 2020-05-09 13:00 | disposition home or self-care (01) ==
LOC: OR 07:45 → 6NMEDSUR 15:54 → OR 19:43
PROVIDERS: ADMIT Orthopaedic Surgery Orthopaedic Surgery of the Spine; ATTEND Orthopaedic Surgery Orthopaedic Surgery of the Spine
DX: M43.16 Spondylolisthesis, lumbar region (principal); M51.17 Intervertebral disc disorders with radiculopathy, lumbosacral region; M47.26 Other spondylosis with radiculopathy, lumbar region; I10 Essential (primary) hypertension; E11.9 Type 2 diabetes mellitus without complications; G47.33 Obstructive sleep apnea (adult) (pediatric); E66.01 Morbid (severe) obesity due to excess calories; R94.39 Abnormal result of other cardiovascular function study; H91.90 Unspecified hearing loss, unspecified ear; H53.8 Other visual disturbances; F40.240 Claustrophobia; Z79.899 Other long term (current) drug therapy; Z97.3 Presence of spectacles and contact lenses; Z87.891 Personal history of nicotine dependence; Z87.442 Personal history of urinary calculi; Z79.84 Long term (current) use of oral hypoglycemic drugs; Z88.8 Allergy status to other drugs, medicaments and biological substances; Z88.1 Allergy status to other antibiotic agents; Z88.6 Allergy status to analgesic agent; R03.1 Nonspecific low blood-pressure reading; Z68.42 Body mass index [BMI] 45.0-49.9, adult; Z99.89 Dependence on other enabling machines and devices; Z98.890 Other specified postprocedural states; Z82.49 Family history of ischemic heart disease and other diseases of the circulatory system; Z82.69 Family history of other diseases of the musculoskeletal system and connective tissue; Z83.49 Family history of other endocrine, nutritional and metabolic diseases; Z83.52 Family history of ear disorders; Z83.438 Family history of other disorder of lipoprotein metabolism and other lipidemia
CPT/HCPCS: 61783; 22630; 22853; 20936; 20939; 22840; 20931; 97116; 97162; 86900; 86901; 80048; 85025; 86850; 83036; 72100; G0378 ×4; C1713; C1762; J2250; J0330; J2710; J0690 ×3; J2405 ×2; J2001; J3010; J1170 ×4; J2704

== ENCOUNTER → 2020-12-30 | Outpatient (CLI) | payer OTHER ==
--- NOTE | 2020-12-30 22:53 | SFUN ---
SLEEP CENTER FOLLOW UP NOTE DATE OF SERVICE: 12/30/2020 This 35-year-old gentleman has been followed in Sleep Center for treatment of obstructive sleep apnea-hypopnea syndrome. Previously I saw the patient more than 2 years ago. The patient continues to use his CPAP equipment, but recently his machine started to create some noise. The patient also feels that sometimes maybe the pressure is not enough for him. [place] Sleepiness Scale today is 4, which is normal. I checked his CPAP unit. CPAP pressure is 9 cm of water. Usage is 30/30 nights for more than 4 hours with average usage 7.7 hours per night. Leak is only 1 L/minute. Apnea-hypopnea index is 0.2, which is normal. MEDICATIONS: 1. Hydrochlorothiazide 25 mg once a day. 2. Metformin 1000 mg twice a day. PHYSICAL EXAMINATION: GENERAL: A pleasant patient in no distress. VITAL SIGNS: BP 172/79, HR 100, RR 18, height 6 feet 0 inches, weight 342.6, temperature 98.0, oxygen saturation at room air 96%. Body mass index 46.3. Patient's weight increased by 23 pounds compared to his previous visit. HEENT: TAWNYA, SILVIA. Evaluation of oropharynx showed tongue protrudes midline. Extremely low position of soft palate. Mallampati IV. NECK: Supple. No JVD. Thyroid is not palpable. LUNGS: Clear to percussion and to auscultation. Good air exchange. No wheezing or rhonchi. HEART: S1, S2 regular. No murmurs, gallops or rubs. ABDOMEN: Obese. EXTREMITIES: No clubbing or cyanosis. ANIMATION DIRECTOR: Awake, alert, and oriented X3. Cranial nerves 2 to 7 intact. There is no fasciculation or atrophy. noted. No focal deficits observed. IMPRESSION: 1. Severe obstructive sleep apnea-hypopnea syndrome. The patient demonstrated 100% compliance with treatment, benefitting from treatment, but his CPAP unit is noisy and the patient feels that sometimes there might not be enough pressure in the machine. 2. Obesity. Body mass index 46.3. The patient's weight increased by around 23 pounds compared to the previous visit. 3. Hypertension; increased blood pressure in the office today. 4. Diabetes mellitus. 5. History of hyperlipidemia. PLAN: 1. Prescription to replace the CPAP unit with an automatic machine with range of pressure 7 to 12. 2. Monitoring blood pressure. Low-sodium diet. 3. Patient will continue to use PAP equipment every night for the whole night. 4. Sleep hygiene with regular time in bed for at least 7-1/2 to 8 hours. 5. Precautions related to driving. No driving if feeling sleepiness. 6. I will maintain all necessary prescription for PAP supplies including mask, tube, filters. 7. Aggressive losing weight. Thank you very much for allowing me to participate in the management of your patient. Sincerely, Felipe Hurley MD, PhD, FAASM Diplomat of [employer] [facility] [place] MMODL / IJN: [id number] /
== END | disposition home or self-care (01) ==
LOC: SLEEP 16:27
PROVIDERS: ATTEND Internal Medicine
DX: G47.33 Obstructive sleep apnea (adult) (pediatric) (principal); E66.9 Obesity, unspecified; I10 Essential (primary) hypertension; E11.9 Type 2 diabetes mellitus without complications; Z99.89 Dependence on other enabling machines and devices; Z79.84 Long term (current) use of oral hypoglycemic drugs; Z79.899 Other long term (current) drug therapy

== ENCOUNTER → 2021-12-01 | Outpatient (CLI) | payer OTHER ==
--- NOTE | 2021-12-01 13:35 | SFUN ---
SLEEP CENTER FOLLOW UP NOTE DATE OF SERVICE: 12/01/2021 This 36-year-old gentleman has been followed in Sleep Center for treatment of obstructive sleep apnea-hypopnea syndrome. The patient continues to use his CPAP equipment every night for the whole night and is getting his CPAP supplies on time. [place] Sleepiness Scale today is 5, which is normal. I checked his CPAP unit. Range of the pressure is 7 to 12 cm of water, average 10 cm of water. The patient is asking for a little bit higher pressure; he would feel more comfortable, according to him. Usage is 28/30 nights and 27/30 nights for more than 4 hours, average 7.9 hours per night, which is great compliance. Leak is only 2 L/minute. Apnea-hypopnea index is only 0.1, which is absolutely perfect. MEDICATIONS: 1. Hydrochlorothiazide 25 mg once a day. 2. Metformin 1000 mg once a day. PHYSICAL EXAMINATION: GENERAL: Pleasant patient in no distress. VITAL SIGNS: BP 134/91, HR 80, RR 16, weight 342.2, which is about the same as during the previous visit. Temperature 97.2, oxygen saturation at room air 98%. HEENT: PERRLA, EOMI, evaluation of oropharynx showed tongue protrudes midline. Extremely low position of soft palate; Mallampati IV. NECK: Supple, no JVD. Thyroid is not palpable. LUNGS: Clear to percussion and to auscultation. Good air exchange. No wheezing or rhonchi. HEART: S1, S2 regular. No murmurs, gallops, or rubs. ABDOMEN: Obese. EXTREMITIES: No clubbing or cyanosis. LAUNDRY MARKER SUPERVISOR: Awake, alert, and oriented X3. Cranial nerves 2 to 7 intact. There is no fasciculation or atrophy. noted. No focal deficits observed. IMPRESSION: 1. Severe obstructive sleep apnea-hypopnea syndrome. Patient demonstrated great compliance with treatment, benefitting from treatment. 2. Obesity. 3. Hypertension; normal blood pressure in the office today. 4. Diabetes mellitus. 5. History of hyperlipidemia. PLAN: 1. I will change the pressure in the machine to the range 7 to 14 cm of water. 2. Patient will continue to use PAP equipment every night for the whole night. 3. Sleep hygiene with regular time in bed for at least 7-1/2 to 8 hours. 4. Precautions related to driving. No driving if feeling sleepiness. 5. I will maintain all necessary prescription for PAP supplies including mask, tube, filters. 6. Watching weight. 7. Follow-up visit in one year or earlier if patient has any problems. Thank you very much for allowing me to participate in the management of your patient. Sincerely, Felipe Hurley MD, PhD, FAASM Diplomat of [employer] Sleep Medicine Board of [employer] [facility] [place] MMODL / MYAN: [id number] /
== END | disposition home or self-care (01) ==
LOC: SLEEP 10:53
PROVIDERS: ATTEND Internal Medicine
DX: G47.33 Obstructive sleep apnea (adult) (pediatric) (principal); E66.9 Obesity, unspecified; E11.9 Type 2 diabetes mellitus without complications; I10 Essential (primary) hypertension; Z86.39 Personal history of other endocrine, nutritional and metabolic disease

== ENCOUNTER 2023-01-26 20:38 | Emergency (ER) | payer OTHER ==
[2023-01-26 20:47] VITALS: TEMP 97.4
[2023-01-26] MEDS ORDERED: MAG HYDROX/AL HYDROX/SIMETH 30 ML, HYOSCYAMINE ELIXIR 10 ML, LIDOCAINE 2% GLYDO JELLY 1... PO STA ×3 (20:51)
[2023-01-26] MEDS ORDERED: SODIUM CHLORIDE 0.9% 1,000 ML IV STA (21:01)
[2023-01-26] MEDS ORDERED: KETOROLAC 15 MG/ML 1 ML VIAL IVP STA (21:01)
--- NOTE | 2023-01-26 21:02 | ED ---
Chest Pain HPI - General Chief Complaint: Chest Pain Stated Complaint: Chest Pain/ Upper back pain Time Seen by Provider: 01/26/23 20:51 Source: patient, RN notes reviewed, old records reviewed Mode of arrival: ambulatory Limitations: no limitations - History of Present Illness Initial Comments: This is a 37-year-old male he presents today for evaluation of back pain back pain chest pain. Patient had increased workload recently and developed pain and back pain over the last 2 days. Patient also symptoms of reflux burning pain in his esophagus, strong family history of heart disease and he himself has high blood pressure and diabetes MD Complaint: chest pain, other (Back pain) -: days(s) Onset: during rest, during exertion Pain Location: substernal, left chest, right chest, epigastric Pain Radiation: back Severity: moderate Severity scale (1-10): 6 Quality: tightness, aching Consistency: constant Improves With: nothing Worsens With: nothing Anginal Symptoms: nausea, dyspnea Treatments Prior to Arrival: none - Related Data Home Medications Medication Instructions Recorded Confirmed hydroCHLOROthiazide [Hydrodiuril] 25 mg PO DAILY 08/16/15 01/26/23 Ibuprofen [Motrin Ib] 600 mg PO DAILY PRN 01/26/23 01/26/23 Naproxen Sodium [Aleve] 220 - 440 mg PO DAILY PRN 01/26/23 01/26/23 metFORMIN HCL ER [Glucophage XR] 1,000 mg PO W/SUPPER 01/26/23 01/26/23 Allergies Allergy/AdvReac Type Severity Reaction Status Date / Time prednisone AdvReac Rapid Verified 01/26/23 21:57 Heart Rate tamsulosin [From Flomax] AdvReac Rapid Verified 01/26/23 21:57 Heart Rate steroids AdvReac Rapid Uncoded 01/26/23 21:57 Heart Rate Review of Systems ROS Statement: Those systems with pertinent positive or pertinent negative responses have been documented in the HPI. ROS Other: All systems not noted in ROS Statement are negative. EKG Findings - EKG Comments: EKG Findings:: EKG is sinus 66 RI 159 QRS 110 QTc 417 Past Medical History Past Medical History: Hypertension, Sleep Apnea/CPAP/BIPAP Additional Past Medical History / Comment(s): KIDNEY STONES History of Any Multi-Drug Resistant Organisms: None Reported Past Surgical History: Ear Surgery, Orthopedic Surgery Additional Past Surgical History / Comment(s): RT ARM-PLATES AND SCREWS, RT EAR RECONSTRUCTION SX(MULTIPLE SX). lithotripsy 2014, 05/06/20 lumbar fusion L4-L5 Dr Banerjee Past Anesthesia/Blood Transfusion Reactions: No Reported Reaction Additional Past Anesthesia/Blood Transfusion Reaction / Comment(s): CLAUSTROPHOBIA Past Psychological History: No Psychological Hx Reported Smoking Status: Former smoker Past Alcohol Use History: Rare Past Drug Use History: None Reported - Past Family History Father Family Medical History: Myocardial Infarction ([place]), Thyroid Disorder Additional Family Medical History / Comment(s): EAR PROBLEMS, Mother Family Medical History: Hyperlipidemia General Exam Limitations: no limitations General appearance: alert, in no apparent distress Head exam: Present: atraumatic, normocephalic, normal inspection Eye exam: Present: normal appearance, PERRL, EOMI. Absent: scleral icterus, co njunctival injection, periorbital swelling ENT exam: Present: normal exam, mucous membranes moist Neck exam: Present: normal inspection. Absent: tenderness, meningismus, lymphadenopathy Respiratory exam: Present: normal lung sounds bilaterally. Absent: respiratory distress, wheezes, rales, rhonchi, stridor Cardiovascular Exam: Present: regular rate, normal rhythm, normal heart sounds. Absent: systolic murmur, diastolic murmur, rubs, gallop, clicks GI/Abdominal exam: Present: soft, normal bowel sounds. Absent: distended, tenderness, guarding, rebound, rigid Extremities exam: Present: normal inspection, full ROM, normal capillary refill. Absent: tenderness, pedal edema, joint swelling, calf tenderness Back exam: Present: normal inspection Neurological exam: Present: alert, oriented X3, CN II-XII intact Psychiatric exam: Present: normal affect, normal mood Skin exam: Present: warm, dry, intact, normal color. Absent: rash Course Vital Signs 01/26/23 01/26/23 01/26/23 20:43 22:14 22:40 Temperature 97.4 F L Pulse Rate 65 60 58 L Respiratory 20 16 16 Rate Blood Pressure 140/85 133/77 115/67 O2 Sat by Pulse 96 95 97 Oximetry - Reevaluation(s) Reevaluation #1: 01/26/23 21:47 Medical record is reviewed Reevaluation #2: 01/26/23 21:47 Patient symptoms are mildly improved here in the ER Reevaluation #3: 01/26/23 21:47 Patient informed of results and questions answered Reevaluation #4: 01/26/23 21:04 Was pt. sent in by a medical professional or institution? @ -no Did you speak to anyone other than the patient for history? @ -no Did you review nursing and triage notes? @ -agree Were old charts reviewed? @ -no Differential Diagnosis? @ -prior EKG interpreted by me (3pts min.)? @ -yes X-rays interpreted by me (1pt min.)? @ -yes CT interpreted by me (1pt min.)? @ -no U/S interpreted by me (1pt. min.)? @ -no What testing was considered but not performed? (CT, X-rays, U/S, labs)? Why? @ -no What meds were considered but not given? Why? @ -no Did you discuss the management of the patient with other professionals? @ -no Did you reconcile home meds? @ -no Was smoking cessation discussed for >3mins.? @ -no Was critical care preformed (if so, how long)? @ -no Were there social determinants of health that impacted care today? How? (Homelessness, low income, unemployed, alcoholism, drug addiction, transportation, low edu. Level, literacy, decrease access to med. care, long term, rehab)? @ -no Was there de-escalation of care discussed even if they declined? (Discuss DNR or withdrawal of care, Hospice)? @ -no What co-morbidities impacted this encounter? (DM, HTN, Smoking, COPD, CAD, Cancer, CVA, Hep., AIDS, mental health diagnosis, sleep apnea, morbid obesity)? @ -none Was patient admitted / discharged? @ -37 male to the emergency department to the emergency department for evaluation presents today for evaluation of chest pain. Chest pain and feels like reflux type pain. Patient symptoms are improving later in the ER strong history and strong family history of heart disease himself I blood pressure but no other findings. Troponin EKG are negative patient feels well and can be discharged home, pain resolved prior to discharge Discharged Undiagnosed new problem with uncertain prognosis? @ -no Drug Therapy requiring intensive monitoring for toxicity (Heparin, Nitro, Insulin, Cardizem)? @ -no Were any procedures done? @ -no Diagnosis/symptom? @ -Chest pain rule out ACS Acute, or Chronic, or Acute on Chronic? @ -Acute Uncomplicated (without systemic symptoms) or Complicated (systemic symptoms)? @ -uncomplicated Side effects of treatment? @ -no Exacerbation, Progression, or Severe Exacerbation] @ -no Poses a threat to life or bodily function? @ -yes if related to ACS, resultant life threat Reevaluation #5: 01/26/23 21:47 Differential Chest Pain: Stable Angina, Unstable Angina, STEMI, NSTEMI Aortic Dissection, Pneumothorax, Musculoskeletal, Esophageal Spasm GERD, Cholecystitis, Pancreatitis, Zoster, this is not meant to be an all-inclusive list. Studies Chest x-rays negative for acute disease interpreted by me Chest Pain MDM - MDM 37 male nonspecific chest pain. Reflux type pain patient feels improved and can be discharged home Disposition Clinical Impression: Hypertension, Chest pain, Costochondritis, Gastritis Disposition: HOME SELF-CARE Condition: Undetermined Instructions (If sedation given, give patient instructions): Chest Pain (ED), Costochondritis (ED) Is patient prescribed a controlled substance at d/c from ED?: No Referrals: Michelle Mosqueda III, MD [Primary Care Provider] - 1-2 days Time of Disposition: 22:20
[2023-01-26 21:19] LABS: Basophils % (A) 1 %; Eosinophils # (A) 0.2 k/uL (0-0.7); Eosinophils % (A) 3 %; HCT 46.4 % (39.0-53.0); HGB 16.1 gm/dL (13.0-17.5); Lymphocytes # (A) 2.5 k/uL (1.0-4.8); Lymphocytes % (A) 39 %; MCH 30.7 pg (25.0-35.0); MCHC 34.7 g/dL (31.0-37.0); MCV 88.6 fL (80.0-100.0); Mean Platelet Volume 8.1; Monocytes # (A) 0.6 k/uL (0-1.0); Monocytes % (A) 9 %; Neutrophils # (A) 2.9 k/uL (1.3-7.7); Neutrophils % (A) 46 %; Platelet Count 175 k/uL (150-450); RBC 5.23 m/uL (4.30-5.90); RDW 12.7 % (11.5-15.5); WBC 6.4 k/uL (3.8-10.6)
[2023-01-26 21:26] LABS: Partial Thromboplastin Time 24.6 sec (22.0-30.0); Prothrombin Time 10.6 sec (9.0-12.0)
[2023-01-26 21:46] LABS: ALT 95 U/L (4-49); AST 56 U/L (17-59); African American GFR (CKD) >90 (>60 ml/min/1.73 sqM); Albumin 4.3 g/dL (3.5-5.0); Alkaline Phosphatase 115 U/L (38-126); Anion Gap 11 mmol/L; Blood Urea Nitrogen 11 mg/dL (9-20); Calcium 9.7 mg/dL (8.4-10.2); Carbon Dioxide 27 mmol/L (22-30); Chloride 102 mmol/L (98-107); Glucose 149 mg/dL (74-99); Lipase 67 U/L (23-300); Magnesium 1.8 mg/dL (1.6-2.3); Non-African American GFR(CKD) >90 (>60 ml/min/1.73 sqM); Potassium 3.4 mmol/L (3.5-5.1); Sodium 140 mmol/L (137-145); Total Bilirubin 0.7 mg/dL (0.2-1.3); Total Protein 7.4 g/dL (6.3-8.2)
[2023-01-26 22:15] VITALS: RESP 16
[2023-01-26] MEDS ORDERED: POTASSIUM CHLORIDE ER 20 MEQ TAB.ER PO STA (22:22)
--- NOTE | 2023-01-26 22:24 | XR ---
EXAMINATION TYPE: XR chest 2V DATE OF EXAM: 01/26/2023 COMPARISON: 04/21/2020 INDICATION: Chest pain TECHNIQUE: Frontal and lateral views of the chest are obtained. FINDINGS: The heart size is normal. The pulmonary vasculature is normal. The lungs are clear. IMPRESSION: 1. No acute pulmonary process.
[2023-01-26 22:40] VITALS: BP 115/67; PULSE 58
[2023-01-26] MEDS ORDERED: traMADol 50 MG STARTER PACK 3 TAB BTL PO STA (22:40)
== END 2023-01-26 22:55 | disposition home or self-care (01) ==
LOC: EC 20:38
DX: I10 Essential (primary) hypertension (principal); R07.89 Other chest pain; M94.0 Chondrocostal junction syndrome [Tietze]; K29.70 Gastritis, unspecified, without bleeding; G47.30 Sleep apnea, unspecified; Z87.891 Personal history of nicotine dependence; Z79.899 Other long term (current) drug therapy; Z88.8 Allergy status to other drugs, medicaments and biological substances; Z88.6 Allergy status to analgesic agent
CPT/HCPCS: 36415; 93005; 83880; 80053; 83690; 83735; 84484; 85025; 85610; 85730; 71046; 99285; 96374; 96361; J1885

== ENCOUNTER → 2023-10-20 | Outpatient (CLI) | payer OTHER ==
--- NOTE | 2023-10-20 16:49 | US ---
EXAMINATION TYPE: US abdomen complete DATE OF EXAM: 10/20/2023 COMPARISON: None CLINICAL INDICATION: Male, 37 years old with history of R13.10 EPIGASTRIC PAIN; Intermittent abdomina l pain 6-12 months. TECHNIQUE: Multiple sonographic images of the abdomen are obtained. FINDINGS: EXAM MEASUREMENTS: Liver Length: 17.8 cm Gallbladder Wall: 0.2 cm CBD: 1.9 cm Spleen: 12.5 cm Right Kidney: 12.2 x 6.2 x 6.2 cm Left Kidney: 13.4 x 7.5 x 5.7 cm MENTAL HEALTH AIDE NOTES: Difficult exam due to patient body habitus Pancreas: Tail obscured by overlying bowel gas Liver: Attenuating and echogenic liver parenchyma. Gallbladder: Stones, however, no abnormal distention, surrounding fluid, or wall thickening. Evidence for sonographic Ndiaye's sign: No CBD: Dilated Spleen: wnl Right Kidney: wnl Left Kidney: wnl Upper IVC: wnl Abd Aorta: wnl IMPRESSION: 1. Borderline hepatomegaly at 17.8 cm with moderate to severe hepatic steatosis. Correlate with LFTs, lipid profile, and patient risk factors. 2. Cholelithiasis. 3. Bile duct dilated at 1.9 cm. Correlate with alkaline phosphatase and bilirubin levels to exclude b iliary obstruction. ERCP or MRCP as clinically indicated.
== END | disposition home or self-care (01) ==
LOC: RADUSWWP 06:46
PROVIDERS: ATTEND Family Medicine
DX: K76.0 Fatty (change of) liver, not elsewhere classified (principal); R16.0 Hepatomegaly, not elsewhere classified; K80.20 Calculus of gallbladder without cholecystitis without obstruction; R13.10 Dysphagia, unspecified
CPT/HCPCS: 76700

== ENCOUNTER 2024-01-16 09:02 | Inpatient (IN) | payer OTHER ==
[2024-01-16] MEDS: SODIUM CHLORIDE 0.9% 1,000 ML IV STA (09:33)
[2024-01-16] MEDS: KETOROLAC 15 MG/ML 1 ML VIAL IVP STA (09:34)
[2024-01-16] MEDS: ONDANSETRON 4 MG/2 ML VIAL IVP STA (09:35)
[2024-01-16] MEDS: HYDROmorphone 0.5 MG/0.5 ML SYRINGE IVP STA (09:38)
--- NOTE | 2024-01-16 09:41 | ED ---
Abdominal Pain HPI - General Chief Complaint: Nausea/Vomiting/Diarrhea Stated Complaint: Gallbladder issues Time Seen by Provider: 01/16/24 09:08 Source: patient, family, RN notes reviewed Mode of arrival: ambulatory Limitations: no limitations - History of Present Illness Initial Comments: This is a 38-year-old male who presents to the emergency department for abdominal pain. Patient has a history of gallstones and states that he had a flareup over the last 2 days. He has pain in the right upper quadrant region as well as nausea and vomiting. Notes that his urine started to turn dark, prompting him to contact Dr. Lewis's office. Given the progressive symptoms and change in urine color, he was instructed to come to the emergency department. He has not measured any fevers but does have the chills. States that Dr. Lewis schedule him for an MRCP. MD Complaint: abdominal pain - Related Data Home Medications Medication Instructions Recorded Confirmed metFORMIN HCL ER [Glucophage XR] 1,000 mg PO PC-SUPPER 01/26/23 01/16/24 Ibuprofen [Motrin] 600 mg PO Q8HR PRN 01/16/24 01/16/24 Olmesartan/Hydrochlorothiazide 1 tab PO DAILY 01/16/24 01/16/24 [Olmesartan-Hctz 20-12.5 mg Tab] Allergies Allergy/AdvReac Type Severity Reaction Status Date / Time prednisone AdvReac Rapid Verified 01/16/24 13:16 Heart Rate tamsulosin [From Flomax] AdvReac Rapid Verified 01/16/24 13:16 Heart Rate steroids AdvReac Rapid Uncoded 01/16/24 13:16 Heart Rate Review of Systems ROS Statement: Those systems with pertinent positive or pertinent negative responses have been documented in the HPI. ROS Other: All systems not noted in ROS Statement are negative. Past Medical History Past Medical History: Hypertension, Sleep Apnea/CPAP/BIPAP Additional Past Medical History / Comment(s): KIDNEY STONES History of Any Multi-Drug Resistant Organisms: None Reported Past Surgical History: Ear Surgery, Orthopedic Surgery Additional Past Surgical History / Comment(s): RT ARM-PLATES AND SCREWS, RT EAR RECONSTRUCTION SX(MULTIPLE SX). lithotripsy 2014, 05/06/20 lumbar fusion L4-L5 Dr Banerjee Past Anesthesia/Blood Transfusion Reactions: No Reported Reaction Additional Past Anesthesia/Blood Transfusion Reaction / Comment(s): CLAUSTROPHOBIA Past Psychological History: No Psychological Hx Reported Smoking Status: Former smoker Past Alcohol Use History: Rare Past Drug Use History: None Reported - Past Family History Father Family Medical History: Myocardial Infarction ([place]), Thyroid Disorder Additional Family Medical History / Comment(s): EAR PROBLEMS, Mother Family Medical History: Hyperlipidemia General Exam Limitations: no limitations General appearance: alert, in no apparent distress Head exam: Present: atraumatic, normocephalic, normal inspection Respiratory exam: Present: normal lung sounds bilaterally. Absent: respiratory distress, wheezes, rales, rhonchi, stridor Cardiovascular Exam: Present: regular rate, normal rhythm, normal heart sounds. Absent: systolic murmur, diastolic murmur, rubs, gallop, clicks GI/Abdominal exam: Present: soft, tenderness (RUQ), normal bowel sounds. Absent: distended Neurological exam: Present: alert, oriented X3, CN II-XII intact Psychiatric exam: Present: normal affect, normal mood Skin exam: Present: warm, dry, intact, normal color. Absent: rash Course Vital Signs 01/16/24 09:03 Temperature 98.2 F Pulse Rate 71 Respiratory 20 Rate Blood Pressure 119/75 O2 Sat by Pulse 99 Oximetry Medical Decision Making - Medical Decision Making This is a 38 year old male who presents to the emergency department for abdominal pain. Was pt. sent in by a medical professional or institution? @ -No Did you speak to anyone other than the patient for history? @ -No Did you review nursing and triage notes? @ -Yes, and I agree, it is accurate with regards to the patient's symptoms. Were old charts reviewed? @ -No Differential Diagnosis? @ -Differential Abdominal Pain Men: Appendicitis, cholecystitis, diverticulosis, ischemic bowel, pancreatitis, hepatitis, UTI, gastroenteritis, AAA, incarcerated hernia, bowel obstruction, constipation, inflammatory bowel, hepatitis, peptic ulcer disease, splenic infarction, perforated viscus, testicular torsion, this is not meant to be an all-inclusive list EKG interpreted by me (3pts min.)? @ -EKG interpreted by me demonstrating the following: Sinus rhythm. Javier tricular rate 71 bpm, UT interval 173 ms, QRS duration 107 ms, QTc 427 ms. X-rays interpreted by me (1pt min.)? @ -Not obtained CT interpreted by me (1pt min.)? @ -CT scan of the abdomen and pelvis obtained. My interpretation identifies no evidence of bowel wall thickening or free air. U/S interpreted by me (1pt. min.)? @ -Gallbladder ultrasound obtained. My interpretation identifies cholelithiasis. What testing was considered but not performed? (CT, X-rays, U/S, labs)? Why? @ -None What meds were considered but not given? Why? @ -None Did you discuss the management of the patient with other professionals? @ -Yes, TONNY Hernandez, who advised a CT scan and will see the patient in consult. Dr. Wise accepts the patient for admission. Did you reconcile home meds? @ -Yes Was smoking cessation discussed for >3mins.? @ -No Was critical care preformed (if so, how long)? @ -No Were there social determinants of health that impacted care today? How? (Homelessness, low income, unemployed, alcoholism, drug addiction, transportation, low edu. Level, literacy, decrease access to med. care, custodial, rehab)? @ -No Was there de-escalation of care discussed even if they declined? (Discuss DNR or withdrawal of care, Hospice)? @ -No What co-morbidities impacted this encounter? (DM, HTN, Smoking, COPD, CAD, Cancer, CVA, Hep., AIDS, mental health diagnosis, sleep apnea, morbid obesity)? @ -Gallstones, morbid obesity Was patient admitted / discharged? @ -Admitted. Lab work demonstrates elevated LFTs with a bilirubin of 1.8, AST of 199, and ALT of 279. Amylase critically elevated at 418 with a lipase of 3705. Gallbladder ultrasound obtained revealing cholelithiasis without other acute process. CT scan of the abdomen and pelvis obtained as well redemonst rating the cholelithiasis, again without other acute process. Lab work suggestive of pancreatitis, however it is unclear if this is a direct result of the gallstones or occurring independently. TONNY Hernandez, made aware of the case, and patient admitted to medicine with consults for gastroenterology and general surgery. Undiagnosed new problem with uncertain prognosis? @ -None Drug Therapy requiring intensive monitoring for toxicity (Heparin, Nitro, [place]su [place], Cardizem)? @ -None Were any procedures done? @ -None Diagnosis/symptom? @ -Pancreatitis, elevated LFTs Acute, or Chronic, or Acute on Chronic? @ -Acute Uncomplicated (without systemic symptoms) or Complicated (systemic symptoms)? @ -Complicated Side effects of treatment? @ -None Exacerbation, Progression, or Severe Exacerbation] @ -Not applicable Poses a threat to life or bodily function? @ -Yes This case was discussed in detail with the attending ED physician, Dr. Herzog. Presentation, findings, and treatment plan discussed in detail as well. - Lab Data Result diagrams: 01/16/24 09:34 01/16/24 09:34 Lab Results 01/16/24 01/16/24 01/16/24 Range/Units 09:34 09:34 09:34 WBC 4.1 (3.8-10.6) k/uL RBC 5.07 (4.30-5.90) m/uL Hgb 15.3 (13.0-17.5) gm/dL Hct 46.1 (39.0-53.0) % MCV 90.9 (80.0-100.0) fL MCH 30.2 (25.0-35.0) pg MCHC 33.3 (31.0-37.0) g/dL RDW 12.7 (11.5-15.5) % Plt Count 149 L (150-450) k/uL MPV 8.8 Neutrophils % 51 % Lymphocytes % 34 % Monocytes % 9 % Eosinophils % 4 % Basophils % 1 % Neutrophils # 2.1 (1.3-7.7) k/uL Lymphocytes # 1.4 (1.0-4.8) k/uL Monocytes # 0.4 (0-1.0) k/uL Eosinophils # 0.2 (0-0.7) k/uL Basophils # 0.0 (0-0.2) k/uL Sodium 136 L (137-145) mmol/L Potassium 4.2 (3.5-5.1) mmol/L Chloride 104 (98-107) mmol/L Carbon Dioxide 25 (22-30) mmol/L Anion Gap 7 mmol/L BUN 14 (9-20) mg/dL Creatinine 0.73 (0.66-1.25) mg/dL Est GFR (CKD-EPI)AfAm >90 (>60 ml/min/1.73 sqM) Est GFR (CKD-EPI)NonAf >90 (>60 ml/min/1.73 sqM) Glucose 151 H (74-99) mg/dL Plasma Lactic Acid Javier (0.7-2.0) mmol/L Calcium 8.7 (8.4-10.2) mg/dL Total Bilirubin 1.8 H (0.2-1.3) mg/dL Conjugated Bilirubin 0.0 (0.0-0.3) mg/dL Unconjugated Bilirubin 1.1 (0.0-1.1) mg/dL Delta Bilirubin 0.7 H (0.0-0.2) mg/dL AST 199 H (17-59) U/L ALT 279 H (4-49) U/L Alkaline Phosphatase 76 (38-126) U/L Total Protein 7.1 (6.3-8.2) g/dL Albumin 4.1 (3.5-5.0) g/dL Amylase 418 H* (30-110) U/L Lipase 3705 H (23-300) U/L Urine Color Light Yellow Urine Appearance Clear (Clear) Urine pH 6.0 (5.0-8.0) Ur Specific [place] >1.050 H (1.001-1.035) Urine Protein Negative (Negative) Urine Glucose (UA) Negative (Negative) Urine Ketones Negative (Negative) Urine Blood Negative (Negative) Urine Nitrite Negative (Negative) Urine Bilirubin Negative (Negative) Urine Urobilinogen <2.0 (<2.0) mg/dL Ur Leukocyte Esterase Negative (Negative) 01/16/24 Range/Units 09:34 WBC (3.8-10.6) k/uL RBC (4.30-5.90) m/uL Hgb (13.0-17.5) gm/dL Hct (39.0-53.0) % MCV (80.0-100.0) fL MCH (25.0-35.0) pg MCHC (31.0-37.0) g/dL RDW (11.5-15.5) % Plt Count (150-450) k/uL MPV Neutrophils % % Lymphocytes % % Monocytes % % Eosinophils % % Basophils % % Neutrophils # (1.3-7.7) k/uL Lymphocytes # (1.0-4.8) k/uL Monocytes # (0-1.0) k/uL Eosinophils # (0-0.7) k/uL Basophils # (0-0.2) k/uL Sodium (137-145) mmol/L Potassium (3.5-5.1) mmol/L Chloride (98-107) mmol/L Carbon Dioxide (22-30) mmol/L Anion Gap mmol/L BUN (9-20) mg/dL Creatinine (0.66-1.25) mg/dL Est GFR (CKD-EPI)AfAm (>60 ml/min/1.73 sqM) Est GFR (CKD-EPI)NonAf (>60 ml/min/1.73 sqM) Glucose (74-99) mg/dL Plasma Lactic Acid Javier 1.2 (0.7-2.0) mmol/L Calcium (8.4-10.2) mg/dL Total Bilirubin (0.2-1.3) mg/dL Conjugated Bilirubin (0.0-0.3) mg/dL Unconjugated Bilirubin (0.0-1.1) mg/dL Delta Bilirubin (0.0-0.2) mg/dL AST (17-59) U/L ALT (4-49) U/L Alkaline Phosphatase (38-126) U/L Total Protein (6.3-8.2) g/dL Albumin (3.5-5.0) g/dL Amylase (30-110) U/L Lipase (23-300) U/L Urine Color Urine Appearance (Clear) Urine pH (5.0-8.0) Ur Specific [place] (1.001-1.035) Urine Protein (Negative) Urine Glucose (UA) (Negative) Urine Ketones (Negative) Urine Blood (Negative) Urine Nitrite (Negative) Urine Bilirubin (Negative) Urine Urobilinogen (<2.0) mg/dL Ur Leukocyte Esterase (Negative) - Radiology Data Radiology results: report reviewed, image reviewed Disposition Clinical Impression: Pancreatitis, Cholelithiasis, Elevated LFTs Disposition: ADMITTED IP TO THIS [facility] Time of Disposition: 12:08
[2024-01-16 10:08] LABS: ALT 279 U/L (4-49); AST 199 U/L (17-59); African American GFR (CKD) >90 (>60 ml/min/1.73 sqM); Albumin 4.1 g/dL (3.5-5.0); Alkaline Phosphatase 76 U/L (38-126); Anion Gap 7 mmol/L; Blood Urea Nitrogen 14 mg/dL (9-20); Calcium 8.7 mg/dL (8.4-10.2); Carbon Dioxide 25 mmol/L (22-30); Chloride 104 mmol/L (98-107); Glucose 151 mg/dL (74-99); Non-African American GFR(CKD) >90 (>60 ml/min/1.73 sqM); Potassium 4.2 mmol/L (3.5-5.1); Sodium 136 mmol/L (137-145); Total Bilirubin 1.8 mg/dL (0.2-1.3); Total Protein 7.1 g/dL (6.3-8.2)
--- NOTE | 2024-01-16 10:27 | US ---
EXAMINATION TYPE: US gallbladder DATE OF EXAM: 01/16/2024 COMPARISON: NONE CLINICAL INDICATION: Male, 38 years old with history of RUQ pain, hx of gallstones; known stones, N,V ,D today TECHNIQUE: Multiple sonographic images of the right upper quadrant are obtained. FINDINGS: EXAM MEASUREMENTS: Liver Length: 22.4 cm Gallbladder Wall: 0.3 cm CBD: 0.6 cm Right Kidney: 11.6 x 5.8 x 6.2 cm TIRE REPAIRER NOTES: large habitus and bowel gas limits exam Pancreas: portions seen appear wnl Liver: enlarged and difficult to penetrate Gallbladder: 2 stones seen toward neck measuring 1.2cm and 1.1cm Evidence for sonographic Ndiaye's sign: no CBD: wnl Right Kidney: wnl IMPRESSION: 1. No evidence for acute process. 2. Hepatic steatosis. 3. Cholelithiasis.
[2024-01-16 10:30] LABS: Lipase 3705 U/L (23-300)
[2024-01-16 10:32] LABS: Amylase 418 U/L (30-110)
[2024-01-16 10:49] LABS: Basophils % (A) 1 %; Eosinophils # (A) 0.2 k/uL (0-0.7); Eosinophils % (A) 4 %; HCT 46.1 % (39.0-53.0); HGB 15.3 gm/dL (13.0-17.5); Lymphocytes # (A) 1.4 k/uL (1.0-4.8); Lymphocytes % (A) 34 %; MCH 30.2 pg (25.0-35.0); MCHC 33.3 g/dL (31.0-37.0); MCV 90.9 fL (80.0-100.0); Mean Platelet Volume 8.8; Monocytes # (A) 0.4 k/uL (0-1.0); Monocytes % (A) 9 %; Neutrophils # (A) 2.1 k/uL (1.3-7.7); Neutrophils % (A) 51 %; Platelet Count 149 k/uL (150-450); RBC 5.07 m/uL (4.30-5.90); RDW 12.7 % (11.5-15.5); WBC 4.1 k/uL (3.8-10.6)
--- NOTE | 2024-01-16 11:50 | CT ---
EXAMINATION TYPE: CT abdomen pelvis w con DATE OF EXAM: 01/16/2024 COMPARISON: 01/01/2019 HISTORY: RUQ pain CT DLP: 3486.4 mGycm CONTRAST: CT scan of the abdomen and pelvis is performed without Oral Contrast and with IV Contrast, patient in jected with 100 mL of Isovue 300. FINDINGS: LUNG BASES-: No visible nodule. No infiltrate. LIVER/GB: Small layering calculi. No space occupying hepatic lesion. Biliary tree is of normal calibe r. Mild hepatic steatosis. PANCREAS: No inflammation. No distinct mass. No CT evidence to suggest pancreatitis. Correlate with amylase and lipase. SPLEEN: No splenic enlargement. No lesion seen. ADRENALS: No nodule. No thickening. KIDNEYS/BLADDER: No hydronephrosis. No nephrolithiasis. No distinct renal mass. Urinary bladder g rossly unremarkable. BOWEL: Normal appendix. Normal bowel caliber. No inflammation. GENITAL ORGANS: No gross abnormality. LYMPH NODES: No greater than 1cm abdominal or pelvic lymph nodes are appreciated. AORTA: No significant abnormality. OSSEOUS STRUCTURES: Postoperative changes lumbar spine. OTHER: No significant additional abnormality is seen. IMPRESSION: 1. No CT evidence to suggest pancreatitis. 2. Mild hepatic steatosis. 3. Small layering gallstones.
[2024-01-16] MEDS ORDERED: ONDANSETRON 4 MG/2 ML VIAL IVP PRN (12:09)
[2024-01-16] MEDS ORDERED: HYDROmorphone 1 MG/ML 1 ML SYRINGE IVP PRN (12:09)
[2024-01-16] MEDS ORDERED: HYDROmorphone 0.5 MG/0.5 ML SYRINGE IVP PRN (12:09)
[2024-01-16] MEDS ORDERED: NALOXONE 0.4 MG/ML 1 ML VIAL IV PRN (12:09)
[2024-01-16 12:33] LABS: Appearance,Urine Clear (Clear); Bilirubin,Urine Negative (Negative); Blood,Urine Negative (Negative); Color,Urine Light Yellow; Glucose,Urine (UA) Negative (Negative); Ketones,Urine Negative (Negative); Leukocyte Esterase,Urine Negative (Negative); Nitrite,Urine Negative (Negative); Protein,Urine Negative (Negative); Urobilinogen,Urine <2.0 mg/dL (<2.0)
[2024-01-16] MEDS: SODIUM CHLORIDE 0.9% 1,000 ML IV SCH (12:33)
[2024-01-16 12:36] LABS: Specific Gravity,Urine >1.050 (1.001-1.035)
[2024-01-16 12:51] LABS: Bilirubin, Delta 0.7 mg/dL (0.0-0.2); Bilirubin,Unconjugated 1.1 mg/dL (0.0-1.1)
[2024-01-16] MEDS: HEPARIN SODIUM,PORCINE 5,000 UNIT/ML 1 ML VIAL SQ SCH (13:48)
--- NOTE | 2024-01-16 18:21 | XR ---
EXAMINATION TYPE: XR chest 1V portable DATE OF EXAM: 01/16/2024 Comparison: 01/26/2023 Clinical History: 38-year-old male CHF, shortness of breath Findings: Heart borderline enlarged. Diffuse interstitial and vascular density. No diaz consolidation or sizab le pleural effusion on the frontal view. Impression: Borderline cardiomegaly and diffuse interstitial changes. Correlate for CHF with pulmonary vascular c ongestion.
[2024-01-16] MEDS: metFORMIN 500 MG TAB PO SCH (18:31)
[2024-01-16] MEDS: PANTOPRAZOLE 40 MG/10 ML VIAL IV SCH (20:57)
--- NOTE | 2024-01-16 20:57 | HP ---
HISTORY AND PHYSICAL CHIEF COMPLAINT: Abdominal pain, nausea, vomiting. HISTORY OF PRESENT ILLNESS: This is a 38-year-old gentleman with a past medical history of multiple medical problems including gallstones, being followed by Dr. Homero Aranda, of right upper quadrant abdominal pain, nausea, vomiting. The patient came to [facility] and admitted for further evaluation. The patient was seen by Dr. Lewis in the outpatient setting. MRCP was being planned at this time. There is no history of any fever, rigors, or chills. The patient has features of acute pancreatitis and CT scan of the abdomen and pelvis, which I reviewed personally showed features of mild hepatic steatosis and small layering gallstones. PAST MEDICAL HISTORY: Reviewed include gallstones, rest of the history and rest of the chart is also reviewed. HOME MEDICATIONS: Reviewed include metformin, doses and rest of medications reviewed and not confirmed yet. ALLERGIES: To include prednisone, rest of allergies noted. FAMILY HISTORY: History of myocardial infarction, thyroid disorder. SOCIAL HISTORY: Previous history of smoking. REVIEW OF SYSTEMS: A 14-point review is negative except as mentioned earlier. PHYSICAL EXAMINATION: VITAL SIGNS: Pulse is 71, blood pressure 119/70, respirations 20. HEENT: Conjunctivae normal. NECK: No jugular venous distention. RESPIRATIONS: Clear to auscultation. ABDOMEN: Soft, obese, mild diffuse discomfort. No guarding, no rigidity. No rebound tenderness. Bowel sounds present. No ascites, no masses palpable. LEGS: No edema, no swelling. NERVOUS SYSTEM: Nonfocal. SKIN: No ulcer, rash, bleeding. JOINTS: No active deforming arthropathy. LABORATORY DATA: Platelets 114, sodium 136, rest of the labs are noted. ASSESSMENT: 1. Acute abdominal pain with possibly cholelithiasis and gallstone pancreatitis. 2. Elevated LFTs, AST, ALT with normal alkaline phosphatase. 3. Elevated bilirubin. 4. Mild hyponatremia. 5. Hypertension. 6. History of nephrolithiasis. 7. History of DJD. 8. History of claustrophobia. 9. Obesity, body mass index of 46.9. RECOMMENDATIONS AND DISCUSSION: This 38-year-old gentleman presented with multiple complex medical issues, we will monitor the patient closely. We will initiate symptomatic treatment, surgical evaluation, otherwise gastroenterology evaluation, symptomatic treatment. Guarded prognosis because of multiple complex medical issues. Further recommendations to follow. We will repeat pancreatic enzymes and continue to monitor. IV Protonix, DVT prophylaxis. See orders for details. Resume the home medications once they are confirmed. Monitor blood sugars closely. Prognosis guarded. Further recommendations to follow. See orders for further details. MMODL / IJN: [id number] / MTDD
[2024-01-16] MEDS: ACETAMINOPHEN TAB 325 MG TAB PO PRN (21:02)
[2024-01-17 04:23] LABS: Basophils % (A) 1 %; Eosinophils # (A) 0.2 k/uL (0-0.7); Eosinophils % (A) 4 %; HCT 41.5 % (39.0-53.0); HGB 14.1 gm/dL (13.0-17.5); Lymphocytes % (A) 41 %; MCH 31.4 pg (25.0-35.0); MCV 92.6 fL (80.0-100.0); Mean Platelet Volume 8.9; Monocytes # (A) 0.3 k/uL (0-1.0); Monocytes % (A) 7 %; Neutrophils # (A) 2.2 k/uL (1.3-7.7); Neutrophils % (A) 45 %; Platelet Count 130 k/uL (150-450); RBC 4.49 m/uL (4.30-5.90); RDW 12.9 % (11.5-15.5); WBC 4.9 k/uL (3.8-10.6)
[2024-01-17 04:40] LABS: ALT 207 U/L (4-49); AST 85 U/L (17-59); African American GFR (CKD) >90 (>60 ml/min/1.73 sqM); Albumin 3.3 g/dL (3.5-5.0); Albumin/Globulin Ratio 1.3; Alkaline Phosphatase 68 U/L (38-126); Amylase 79 U/L (30-110); Anion Gap 5 mmol/L; Blood Urea Nitrogen 9 mg/dL (9-20); Calcium 7.9 mg/dL (8.4-10.2); Carbon Dioxide 24 mmol/L (22-30); Chloride 108 mmol/L (98-107); Globulin 2.6 g/dL; Glucose 98 mg/dL (74-99); Lipase 216 U/L (23-300); Non-African American GFR(CKD) >90 (>60 ml/min/1.73 sqM); Potassium 3.8 mmol/L (3.5-5.1); Sodium 137 mmol/L (137-145); Total Bilirubin 1.3 mg/dL (0.2-1.3); Total Protein 5.9 g/dL (6.3-8.2)
[2024-01-17] MEDS: LOSARTAN 50 MG TAB PO SCH (08:16)
[2024-01-17] MEDS: hydroCHLOROthiazide 12.5 MG CAP PO SCH (08:32)
[2024-01-17] MEDS ORDERED: [UNRECOGNIZED DRUG - OTHER] PO SCH (09:00)
[2024-01-17] MEDS ORDERED: HYDROCHLOROTHIAZIDE PO SCH (09:00)
[2024-01-17] MEDS ORDERED: PANTOPRAZOLE 40 MG/10 ML VIAL IV SCH (09:00)
[2024-01-17] MEDS ORDERED: OLMESARTAN PO SCH (09:00)
--- NOTE | 2024-01-17 10:36 | P.CONS ---
History of Present Illness - Reason for Consult Consult date: 01/17/24 Elevated LFTs, pancreatitis, cholelithiasis Requesting physician: Graciela Mcadams - Chief Complaint Abdominal pain - History of Present Illness This is a pleasant 38-year-old male who presented to the emergency department yesterday with complaints of abdominal pain that began on Monday night and continued throughout Monday and Monday. He came to the emergency department for further evaluation. Patient had elevated LFTs as well as amylase and lipase, gastroenterology was consulted for pancreatitis and cholelithiasis. Most of the abdominal pain is in the upper abdomen and associated with dry heaving. States today abdominal pain is better. He has tolerating clear liquid diet. Admitting labs WBC 4.1 hemoglobin 15 platelet count 149,000 total bilirubin 1.8 AST 199 ALT 279 alkaline phosphatase 76 amylase 418 lipase 3705. Today's repeat labs are trending down with total bilirubin 1.3 AST 85 ALT 207 alkaline phosphatase 68 amylase 79 and lipase 216. Gallbladder ultrasound and CT of the abdomen pelvis were completed as part of his workup reporting hepatic steatosis and cholelithiasis with no CBD dilation. Review of Systems REVIEW OF SYSTEMS: CARDIOPULMONARY: No chest pain or shortness of breath. Gastrointestinal: Right upper quadrant pain. No nausea or vomiting. No hematemesis, coffee-ground emesis. No rectal bleeding, or melena. GENITOURINARY: No dysuria or hematuria. MUSCULOSKELETAL: Reports normal range of motion. SKIN: No rashes. No jaundice. ENDOCRINE: No chills, fevers. No excessive weight gain or loss. No polydipsia or polyuria. PSYCHIATRIC: Unremarkable. NEUROLOGY: No change in mental status. Denies dizziness, headache. ENT: Vision unremarkable. CONSTITUTIONAL: No recent weight loss. No fever, chills, night sweats. Past Medical History Past Medical History: Hypertension, Sleep Apnea/CPAP/BIPAP Additional Past Medical History / Comment(s): KIDNEY STONES History of Any Multi-Drug Resistant Organisms: None Reported Past Surgical History: Ear Surgery, Orthopedic Surgery Additional Past Surgical History / Comment(s): RT ARM-PLATES AND SCREWS, RT EAR RECONSTRUCTION SX(MULTIPLE SX). lithotripsy 2014, 05/06/20 lumbar fusion L4-L5 Dr Banerjee Past Anesthesia/Blood Transfusion Reactions: No Reported Reaction Additional Past Anesthesia/Blood Transfusion Reaction / Comm: CLAUSTROPHOBIA Past Psychological History: No Psychological Hx Reported Smoking Status: Former smoker Past Alcohol Use History: Rare Additional Past Alcohol Use History / Comment(s): smoked 2 years, 1pk/day, quit smoking 2007 Past Drug Use History: None Reported - Past Family History Father Family Medical History: Myocardial Infarction ([place]), Thyroid Disorder Additional Family Medical History / Comment(s): EAR PROBLEMS, Mother Family Medical History: Hyperlipidemia Medications and Allergies Home Medications Medication Instructions Recorded Confirmed Type metFORMIN HCL ER [Glucophage XR] 1,000 mg PO PC-SUPPER 01/26/23 01/16/24 History Ibuprofen [Motrin] 600 mg PO Q8HR PRN 01/16/24 01/16/24 History Olmesartan/Hydrochlorothiazide 1 tab PO DAILY 01/16/24 01/16/24 History [Olmesartan-Hctz 20-12.5 mg Tab] Allergies Allergy/AdvReac Type Severity Reaction Status Date / Time prednisone AdvReac Rapid Verified 01/16/24 13:16 Heart Rate tamsulosin [From Flomax] AdvReac Rapid Verified 01/16/24 13:16 Heart Rate steroids AdvReac Rapid Uncoded 01/16/24 13:16 Heart Rate Physical Exam Vitals: Vital Signs Temp Pulse Pulse Resp BP BP Pulse Ox 01/17/24 06:41 97.7 F 58 L 16 110/77 99 01/17/24 01:19 97.4 F L 71 16 115/79 97 01/16/24 23:40 97.9 F 60 16 107/74 98 01/16/24 23:06 97.7 F 59 L 18 123/75 97 01/16/24 18:50 98.3 F 65 18 111/73 100 01/16/24 09:03 98.2 F 71 20 119/75 99 Intake and Output 01/16/24 01/17/24 01/17/24 22:59 06:59 14:59 Other: # Voids 1 Weight 152.407 kg General appearance: The patient is alert, oriented, appears in no acute distress. HET: Head is normocephalic and atraumatic. Conjunctiva pink. Sclera anicteric. Neck: Supple without lymphadenopathy. Trachea midline. Heart: Regular. Lungs: Equal expansion, normal respiratory effort. Abdomen: Soft, mild right upper quadrant tenderness, morbidly obese, nondistended. Skin: No rashes. No jaundice. Extremities: Normal skin color and turgor. No pedal edema. Neurological: No focal deficits. Alert and oriented x3. Results CBC & Chem 7: 01/17/24 03:10 01/17/24 03:10 Labs: Abnormal Lab Results - Last 24 Hours (Table) 01/16/24 01/16/24 01/16/24 Range/Units 09:34 09:34 09:34 Plt Count 149 L (150-450) k/uL Sodium 136 L (137-145) mmol/L Chloride (98-107) mmol/L Glucose 151 H (74-99) mg/dL Calcium (8.4-10.2) mg/dL Total Bilirubin 1.8 H (0.2-1.3) mg/dL Delta Bilirubin 0.7 H (0.0-0.2) mg/dL AST 199 H (17-59) U/L ALT 279 H (4-49) U/L Total Protein (6.3-8.2) g/dL Albumin (3.5-5.0) g/dL Amylase 418 H* (30-110) U/L Lipase 3705 H (23-300) U/L Ur Specific [place] >1.050 H (1.001-1.035) 01/17/24 01/17/24 Range/Units 03:10 03:10 Plt Count 130 L (150-450) k/uL Sodium (137-145) mmol/L Chloride 108 H (98-107) mmol/L Glucose (74-99) mg/dL Calcium 7.9 L (8.4-10.2) mg/dL Total Bilirubin (0.2-1.3) mg/dL Delta Bilirubin (0.0-0.2) mg/dL AST 85 H (17-59) U/L ALT 207 H (4-49) U/L Total Protein 5.9 L (6.3-8.2) g/dL Albumin 3.3 L (3.5-5.0) g/dL Amylase (30-110) U/L Lipase (23-300) U/L Ur Specific [place] (1.001-1.035) Comments: CT abdomen pelvis with contrast reports no CT evidence to suggest pancreatitis. Mild hepatic steatosis. Small layering gallstones Gallbladder ultrasound reports no evidence for acute process. Hepatic steatosis. Cholelithiasis. Assessment and Plan (1) Gallstone pancreatitis Narrative/Plan: 38-year-old male presenting with abdominal pain mostly in the right upper quadrant and epigastric region. Noted to have elevated LFTs as well as amylase and lipase consistent with pancreatitis. Imaging both on CAT scan and ultrasound with findings of cholelithiasis. No CBD dilation. Patient did have elevation in total bilirubin as well as AST and ALT which suggest patient may have passed stone however LFTs have all trended down as well as amylase and lipase. No plans on endoscopic evaluation with a ERCP. Recommend surgical evaluation and recommendation for cholecystectomy. Current Visit: Yes Status: Acute Code(s): K85.10 - BILIARY ACUTE PANCREATITIS WITHOUT NECROSIS OR INFECTION SNOMED Code(s): 48187228 (2) Abdominal pain Current Visit: Yes Status: Acute Code(s): R10.9 - UNSPECIFIED ABDOMINAL PAIN SNOMED Code(s): 12775571 (3) Cholelithiasis Current Visit: Yes Status: Acute Code(s): K80.20 - CALCULUS OF GALLBLADDER W/O CHOLECYSTITIS W/O OBSTRUCTION SNOMED Code(s): 336861022 (4) Elevated LFTs Current Visit: Yes Status: Acute Code(s): R79.89 - OTHER SPECIFIED ABNORMAL FINDINGS OF BLOOD CHEMISTRY SNOMED Code(s): 826487555 (5) Morbid obesity with BMI of 45.0-49.9, adult Current Visit: No Status: Acute Code(s): E66.01 - MORBID (SEVERE) OBESITY DUE TO EXCESS CALORIES; Z68.42 - BODY MASS INDEX [BMI] 45.0-49.9, ADULT SNOMED Code(s): 261050617 Plan: 1. Continue symptomatic and supportive care 2. Patient may continue clear liquid diet 3. Repeat CMP tomorrow 4. No plans on ERCP 5. Await surgical evaluation and recommendations Thank you for this consultation, we will continue to follow. Dr. Jeferson Teran I agree with the dictator's note, documented as a scribe by Melodie Reyez.
--- NOTE | 2024-01-17 11:49 | P.GSCN ---
History of Present Illness Consult date: 01/17/24 Reason for Consult: Gallstone pancreatitis History of present illness: 38-year-old male known to our service. Recently seen in the office regarding gallbladder issues. At that time his ultrasound showed a 1.9 cm bile duct. His liver tests were only minimally elevated. We ordered an MRCP. Yesterday he contacted our office stating that he was having dark urine and increased pain. Came to the hospital. Found to have gallstone pancreatitis. Today's labs are improved suggesting he passed his stone. Common bile duct on ultrasound on p resentation was 6 mm and the CAT scan was reviewed and shows no obvious biliary dilation. Review of Systems The patient denies any acute changes in vision or hearing, no dysphagia or odynophagia, no chest pain or shortness of breath, no dysuria or hematuria, no headache, no runny nose, no rectal bleeding or melena, no unexplained weight loss Past Medical History Past Medical History: Hypertension, Sleep Apnea/CPAP/BIPAP Additional Past Medical History / Comment(s): KIDNEY STONES History of Any Multi-Drug Resistant Organisms: None Reported Past Surgical History: Ear Surgery, Orthopedic Surgery Additional Past Surgical History / Comment(s): RT ARM-PLATES AND SCREWS, RT EAR RECONSTRUCTION SX(MULTIPLE SX). lithotripsy 2014, 05/06/20 lumbar fusion L4-L5 Dr Banerjee Past Anesthesia/Blood Transfusion Reactions: No Reported Reaction Additional Past Anesthesia/Blood Transfusion Reaction / Comm: CLAUSTROPHOBIA Past Psychological History: No Psychological Hx Reported Smoking Status: Former smoker Past Alcohol Use History: Rare Additional Past Alcohol Use History / Comment(s): smoked 2 years, 1pk/day, quit smoking 2007 Past Drug Use History: None Reported - Past Family History Father Family Medical History: Myocardial Infarction ([place]), Thyroid Disorder Additional Family Medical History / Comment(s): EAR PROBLEMS, Mother Family Medical History: Hyperlipidemia Medications and Allergies Home Medications Medication Instructions Recorded Confirmed Type metFORMIN HCL ER [Glucophage XR] 1,000 mg PO PC-SUPPER 01/26/23 01/16/24 History Ibuprofen [Motrin] 600 mg PO Q8HR PRN 01/16/24 01/16/24 History Olmesartan/Hydrochlorothiazide 1 tab PO DAILY 01/16/24 01/16/24 History [Olmesartan-Hctz 20-12.5 mg Tab] Allergies Allergy/AdvReac Type Severity Reaction Status Date / Time prednisone AdvReac Rapid Verified 01/16/24 13:16 Heart Rate tamsulosin [From Flomax] AdvReac Rapid Verified 01/16/24 13:16 Heart Rate steroids AdvReac Rapid Uncoded 01/16/24 13:16 Heart Rate Surgical - Exam Vital Signs Temp Pulse Resp BP Pulse Ox 98.2 F 71 20 119/75 99 01/16/24 09:03 01/16/24 09:03 01/16/24 09:03 01/16/24 09:03 01/16/24 09:03 Physical exam: General: Well-developed, well-nourished HEENT: Normocephalic, sclerae nonicteric Abdomen: Minimal epigastric tenderness, nondistended Extremities: No edema Neuro: Alert and oriented Results - Labs 01/17/24 03:10 01/17/24 03:10 Abnormal Lab Results - Last 24 Hours (Table) 01/16/24 01/16/24 01/17/24 Range/Units 09:34 09:34 03:10 Plt Count 130 L (150-450) k/uL Sodium 136 L (137-145) mmol/L Chloride (98-107) mmol/L Glucose 151 H (74-99) mg/dL Calcium (8.4-10.2) mg/dL Total Bilirubin 1.8 H (0.2-1.3) mg/dL Delta Bilirubin 0.7 H (0.0-0.2) mg/dL AST 199 H (17-59) U/L ALT 279 H (4-49) U/L Total Protein (6.3-8.2) g/dL Albumin (3.5-5.0) g/dL Amylase 418 H* (30-110) U/L Lipase 3705 H (23-300) U/L Ur Specific [place] >1.050 H (1.001-1.035) 01/17/24 Range/Units 03:10 Plt Count (150-450) k/uL Sodium (137-145) mmol/L Chloride 108 H (98-107) mmol/L Glucose (74-99) mg/dL Calcium 7.9 L (8.4-10.2) mg/dL Total Bilirubin (0.2-1.3) mg/dL Delta Bilirubin (0.0-0.2) mg/dL AST 85 H (17-59) U/L ALT 207 H (4-49) U/L Total Protein 5.9 L (6.3-8.2) g/dL Albumin 3.3 L (3.5-5.0) g/dL Amylase (30-110) U/L Lipase (23-300) U/L Ur Specific [place] (1.001-1.035) Diabetes panel 01/16/24 01/17/24 Range/Units 09:34 03:10 Sodium 136 L 137 (137-145) mmol/L Potassium 4.2 3.8 (3.5-5.1) mmol/L Chloride 104 108 H (98-107) mmol/L Carbon Dioxide 25 24 (22-30) mmol/L BUN 14 9 (9-20) mg/dL Creatinine 0.73 0.67 (0.66-1.25) mg/dL Glucose 151 H 98 (74-99) mg/dL Calcium 8.7 7.9 L (8.4-10.2) mg/dL AST 199 H 85 H (17-59) U/L ALT 279 H 207 H (4-49) U/L Alkaline Phosphatase 76 68 (38-126) U/L Total Protein 7.1 5.9 L (6.3-8.2) g/dL Albumin 4.1 3.3 L (3.5-5.0) g/dL Calcium panel 01/16/24 01/17/24 Range/Units 09:34 03:10 Calcium 8.7 7.9 L (8.4-10.2) mg/dL Albumin 4.1 3.3 L (3.5-5.0) g/dL Pituitary panel 01/16/24 01/17/24 Range/Units 09:34 03:10 Sodium 136 L 137 (137-145) mmol/L Potassium 4.2 3.8 (3.5-5.1) mmol/L Chloride 104 108 H (98-107) mmol/L Carbon Dioxide 25 24 (22-30) mmol/L BUN 14 9 (9-20) mg/dL Creatinine 0.73 0.67 (0.66-1.25) mg/dL Glucose 151 H 98 (74-99) mg/dL Calcium 8.7 7.9 L (8.4-10.2) mg/dL Adrenal panel 01/16/24 01/17/24 Range/Units 09:34 03:10 Sodium 136 L 137 (137-145) mmol/L Potassium 4.2 3.8 (3.5-5.1) mmol/L Chloride 104 108 H (98-107) mmol/L Carbon Dioxide 25 24 (22-30) mmol/L BUN 14 9 (9-20) mg/dL Creatinine 0.73 0.67 (0.66-1.25) mg/dL Glucose 151 H 98 (74-99) mg/dL Calcium 8.7 7.9 L (8.4-10.2) mg/dL Total Bilirubin 1.8 H 1.3 (0.2-1.3) mg/dL AST 199 H 85 H (17-59) U/L ALT 279 H 207 H (4-49) U/L Alkaline Phosphatase 76 68 (38-126) U/L Total Protein 7.1 5.9 L (6.3-8.2) g/dL Albumin 4.1 3.3 L (3.5-5.0) g/dL Assessment and Plan (1) Gallstone pancreatitis Narrative/Plan: 38-year-old male with gallstone pancreatitis. Patient's symptoms have improved. He has no real pain at this time he states. Appreciate GI evaluation and recommendations. Will repeat labs tomorrow. Tentatively I placed him on the schedule for laparoscopic cholecystectomy, possible open tomorrow. Risks of bleeding, infection, bile leak, bile duct injury, retained common bile duct stone, trocar injury, conversion to an open procedure, hernia, anesthesia related complications were reviewed. The patient understands and wishes to proceed. Current Visit: Yes Status: Acute Code(s): K85.10 - BILIARY ACUTE PANCREATITIS WITHOUT NECROSIS OR INFECTION SNOMED Code(s): 95717342
--- NOTE | 2024-01-18 01:28 | PN ---
PROGRESS NOTE DATE OF SERVICE: 01/17/2024 SUBJECTIVE: This is a 38-year-old gentleman who was admitted with acute abdominal pain with cholelithiasis and gallstone pancreatitis, being closely monitored. No chest pain, no palpitations, no fever. The amylase lipase is normalized at this time. Gastroenterology surgery following the patient closely. No chest pain, no palpitations, no fever. No plans of ERCP, laparoscopic cholecystomy being planned by surgery. OBJECTIVE: VITAL SIGNS: Pulse is 58, blood pressure 110/77, respirations 16. CHEST: Clear to auscultation. CARDIOVASCULAR: S1, S2. ABDOMEN: Soft, obese, minimal discomfort. No guarding, no rigidity. LABORATORY DATA: Reviewed. AST 685 and ALT is 207. Alkaline phosphatase is normal. ASSESSMENT: 1. Acute abdominal pain with possibly cholelithiasis and gallstone pancreatitis. The pancreatic part improving. 2. Elevated LFT, AST, ALT with normal alkaline phosphatase. 3. Elevated bilirubin. 4. Mild hyponatremia. 5. Hypertension. 6. History of nephrolithiasis. 7. Degenerative joint disease. 8. History of claustrophobia. 9. Obesity, body mass index of 46.9. RECOMMENDATIONS: Continue current management, continue symptomatic treatment. Continue with pain management. No plans for ERCP per gastroenterology and laparoscopic cholecystectomy per surgery. I will order repeat labs. MMODL / IJN: [id number] /
[2024-01-18 12:29] LABS: Basophils % (A) 1 %; Eosinophils # (A) 0.2 k/uL (0-0.7); Eosinophils % (A) 3 %; HCT 42.1 % (39.0-53.0); HGB 14.2 gm/dL (13.0-17.5); Lymphocytes # (A) 1.7 k/uL (1.0-4.8); Lymphocytes % (A) 35 %; MCH 30.9 pg (25.0-35.0); MCHC 33.7 g/dL (31.0-37.0); MCV 91.8 fL (80.0-100.0); Mean Platelet Volume 8.4; Monocytes # (A) 0.3 k/uL (0-1.0); Monocytes % (A) 7 %; Neutrophils # (A) 2.4 k/uL (1.3-7.7); Neutrophils % (A) 51 %; Platelet Count 136 k/uL (150-450); RBC 4.59 m/uL (4.30-5.90); RDW 12.7 % (11.5-15.5); WBC 4.7 k/uL (3.8-10.6)
[2024-01-18 12:50] LABS: ALT 153 U/L (4-49); AST 56 U/L (17-59); African American GFR (CKD) >90 (>60 ml/min/1.73 sqM); Albumin 3.6 g/dL (3.5-5.0); Alkaline Phosphatase 69 U/L (38-126); Amylase 42 U/L (30-110); Anion Gap 5 mmol/L; Blood Urea Nitrogen 7 mg/dL (9-20); Calcium 8.6 mg/dL (8.4-10.2); Carbon Dioxide 24 mmol/L (22-30); Chloride 110 mmol/L (98-107); Glucose 100 mg/dL (74-99); Lipase 64 U/L (23-300); Non-African American GFR(CKD) >90 (>60 ml/min/1.73 sqM); Potassium 4.2 mmol/L (3.5-5.1); Sodium 139 mmol/L (137-145); Total Protein 6.4 g/dL (6.3-8.2)
[2024-01-18] MEDS: LACTATED RINGERS 1,000 ML IV ONE ×2 (13:00→16:26)
[2024-01-18 13:10] LABS: Glucose,Whole Blood 103 mg/dL (70-110)
[2024-01-18] MEDS: ONDANSETRON 4 MG/2 ML VIAL IVP ONE (13:24)
[2024-01-18] MEDS: FAMOTIDINE 20 MG/2 ML VIAL IVP ONE (13:24)
--- NOTE | 2024-01-18 13:39 | P.PN ---
Subjective Progress Note Date: 01/18/24 Principal diagnosis: Gallstone pancreatitis This is a pleasant 38-year-old male who presented to the emergency department yesterday with complaints of abdominal pain that began on Monday night and continued throughout Monday and Monday. He came to the emergency department for further evaluation. Patient had elevated LFTs as well as amylase and lipase, gastroenterology was consulted for pancreatitis and cholelithiasis. Most of the abdominal pain is in the upper abdomen and associated with dry heaving. States today abdominal pain is better. He has tolerating clear liquid diet. Admitting labs WBC 4.1 hemoglobin 15 platelet count 149,000 total bilirubin 1.8 AST 199 ALT 279 alkaline phosphatase 76 amylase 418 lipase 3705. Today's repeat labs are trending down with total bilirubin 1.3 AST 85 ALT 207 alkaline phosphatase 68 amylase 79 and lipase 216. Gallbladder ultrasound and CT of the abdomen pelvis were completed as part of his workup reporting hepatic steatosis and cholelithiasis with no CBD dilation. 01/19/2024 Patient seen and examined today as a follow-up. States abdominal pain has improved significantly. Still has little bit of left upper quadrant tenderness. Denies any nausea or vomiting. He is scheduled for laparoscopic c holecystectomy today. Patient has been afebrile. Total bilirubin 1.0 AST 56 ALT 153 alkaline phosphatase 69 amylase 42 lipase 64 Objective - Vital Signs Vital signs: Vital Signs Temp 98.5 F 01/18/24 08:00 Pulse 67 01/18/24 08:00 Resp 17 01/18/24 08:00 BP 129/79 01/18/24 10:46 Pulse Ox 99 01/18/24 08:00 FiO2 Intake & Output 01/17/24 01/18/24 01/18/24 18:59 06:59 18:59 Intake Total 118 540 Balance 118 540 Weight 152.407 kg Intake: Oral 118 540 Other: # Voids 4 1 - Exam General appearance: The patient is alert, oriented, appears in no acute distress. HET: Head is normocephalic and atraumatic. Conjunctiva pink. Sclera anicteric. Neck: Supple without lymphadenopathy. Abdomen: Soft, left upper quadrant tenderness, nondistended. Morbidly obese. Extremities: Normal skin color and turgor. No pedal edema Skin: No rashes, no jaundice Neurological: No focal deficits. Alert and oriented. - Labs CBC & Chem 7: 01/18/24 12:09 01/18/24 12:09 Assessment and Plan (1) Gallstone pancreatitis Narrative/Plan: 38-year-old male presenting with abdominal pain mostly in the right upper quadrant and epigastric region. Noted to have elevated LFTs as well as amylase and lipase consistent with pancreatitis. Imaging both on CAT scan and ultrasound with findings of cholelithiasis. No CBD dilation. Patient did have elevation in total bilirubin as well as AST and ALT which suggest patient may have passed stone however LFTs have all trended down as well as amylase and lipase. No plans on endoscopic evaluation with a ERCP. Recommend surgical evaluation and recommendation for cholecystectomy. LFTs continue to trend down abdominal pain improved. Scheduled for cholecystectomy today. Current Visit: Yes Status: Acute Code(s): K85.10 - BILIARY ACUTE PANCREATITIS WITHOUT NECROSIS OR INFECTION SNOMED Code(s): 32157075 (2) Abdominal pain Current Visit: Yes Status: Acute Code(s): R10.9 - UNSPECIFIED ABDOMINAL PAIN SNOMED Code(s): 65932956 (3) Cholelithiasis Current Visit: Yes Status: Acute Code(s): K80.20 - CALCULUS OF GALLBLADDER W/O CHOLECYSTITIS W/O OBSTRUCTION SNOMED Code(s): 767680354 (4) Elevated LFTs Narrative/Plan: Improving Current Visit: Yes Status: Acute Code(s): R79.89 - OTHER SPECIFIED ABNORMAL FINDINGS OF BLOOD CHEMISTRY SNOMED Code(s): 991690778 (5) Morbid obesity with BMI of 45.0-49.9, adult Current Visit: No Status: Acute Code(s): E66.01 - MORBID (SEVERE) OBESITY DUE TO EXCESS CALORIES; Z68.42 - BODY MASS INDEX [BMI] 45.0-49.9, ADULT SNOMED Code(s): 167911401 Plan: 1. Continue symptomatic and supportive care 2. Diet per recommendations from general surgery 3. Pain medication as needed 4. No plans on ERCP 5. Patient is scheduled for cholecystectomy today Thank you for this consultation, we will sign off at this time. Dr. Jeferson Teran I agree with the dictator's note, documented as a scribe by Melodie Reyez. Sign off
[2024-01-18] MEDS ORDERED: NEOSTIGMINE 1 MG/ML 10 ML VIAL ONE (15:03)
[2024-01-18] MEDS ORDERED: fentaNYL (PF) 50 MCG/ML 2 ML AMP ONE (15:03)
[2024-01-18] MEDS ORDERED: KETOROLAC 15 MG/ML 1 ML VIAL ONE (15:03)
[2024-01-18] MEDS ORDERED: SUCCINYLCHOLINE CHLORIDE 200 MG/10 ML VIAL IV ONE (15:03)
[2024-01-18] MEDS ORDERED: ROCURONIUM 10 MG/ML (5 ML VIAL) IV ONE (15:03)
[2024-01-18] MEDS ORDERED: GLYCOPYRROLATE 0.2 MG/ML 2 ML VIAL ONE (15:03)
[2024-01-18] MEDS ORDERED: PROPOFOL 10 MG/ML 20 ML VIAL IV ONE (15:03)
[2024-01-18] MEDS ORDERED: HYDROmorphone (PF) 1 MG/ML ONE (15:03)
[2024-01-18] MEDS ORDERED: MIDAZOLAM 2 MG/2 ML VIAL ONE (15:03)
[2024-01-18] MEDS ORDERED: LIDOCAINE 1% INJ 10MG/ML (20 ML MDV) ONE (15:03)
[2024-01-18] MEDS: ceFAZolin 3 GM in SODIUM CHLORIDE 0.9% 100 ML IVPB PRN (15:20)
[2024-01-18] MEDS: BUPIVACAINE (PF) 0.25% 10 ML VIAL SQ ONE (15:32)
--- NOTE | 2024-01-18 16:38 | P.OP ---
Date of Procedure: 01/18/24 Procedure(s) Performed: PREOPERATIVE DIAGNOSIS: Gallstone pancreatitis POSTOPERATIVE DIAGNOSIS: Same PROCEDURE: Laparoscopic cholecystectomy SURGEON: Joshua EBL: 20 cc ANESTHESIA: Gen. COMPLICATIONS: None OPERATIVE PROCEDURE: The patient was brought and placed on the operating room table in the supine position. The patient was placed under general anesthesia at that time. The abdomen was prepped and draped in the usual sterile fashion. A small curvilinear supraumbilical incision was made. The fascia was grasped with the Torie forceps. The fascia was retracted anteriorly. The Veress needle was initially utilized. I was not able to confidently say that we were past the peritoneum. This attempt was aborted. I then used an optical trocar in the right upper quadrant. Again the patient's abdominal wall was so thick that we were unable to enter the peritoneum. I then placed an optical trocar in the left upper quadrant and we were able to gain access without difficulty there. I then placed a supraumbilical 5 mm trocar, two 5 mm right upper quadrant trocars, a 12 mm epigastric trocar all under direct visualization. The camera was then switched to the supraumbilical trocar site. The gallbladder was chronically inflamed. The gallbladder was retracted superiorly and laterally. The peritoneum overlying the infundibulum was bluntly dissected. The patient's cystic duct was visualized. The junction between the cystic duct common and hepatic duct was identified. The critical view of safety was achieved after blunt dissection. The cystic duct was then divided after placement of 3 12 mm clips on the patient's side and one on the specimen side. The cystic artery was identified and clipped as well. A small vessel was seen along the gallbladder fossa and clipped as well. The gallbladder was then removed from the liver bed using electrocautery. The gallbladder was then removed from the epigastric trocar site with an Endo Catch bag. The gallbladder fossa was irrigated with saline. There was no evidence of any bleeding or biliary drainage seen. The fascia at the 12 millimeter site was closed using a Quan-Marci 0 Vicryl stitch. The trochars were then removed. The skin at all 5 sites was closed using a 4-0 Monocryl stitch. Skin glue was utilized on the incision sites. At the end of this procedure the sponge and needle counts were correct. DISPOSITION: Stable to the recovery room
[2024-01-18] MEDS: MEPERIDINE 50 MG/ML SYRINGE IVP ONE (16:52)
[2024-01-18] MEDS: KETOROLAC 15 MG/ML 1 ML VIAL IVP PRN (18:29)
[2024-01-18] MEDS: Acetaminophen-Codeine 300-30mg TAB PO PRN (22:45)
--- NOTE | 2024-01-19 01:00 | P.PN ---
Subjective Progress Note Date: 01/18/24 Patient is evaluated on the medical floor pending laproscopic cholecystectomy. Patient reports mild right sided abdominal pain. GI has felt patient has passed gallstone. His AST/ALT and ALk Phos are all improving. Amylase and lipase have normalized. Review of Systems Constitutional: Denied any fatigue denied any fever. Cardio vascular: denied any chest pain, palpitations Gastrointestinal: denied any nausea, vomiting, diarrhea. Reports RUQ abdominal pain Pulmonary: Denied any shortness of breath cough Neurologic denied any new focal deficits All inpatient medications were reviewed and appropriate changes in these medications as dictated in the interval history and assessment and plan. PHYSICAL EXAMINATION: GENERAL: The patient is alert and oriented x3, not in any acute distress. Well developed, well nourished. HEENT: Pupils are round and equally reacting to light. EOMI. No scleral icterus. No conjunctival pallor. Normocephalic, atraumatic. No pharyngeal erythema. No thyromegaly. CARDIOVASCULAR: S1 and S2 present. No murmurs, rubs, or gallops. PULMONARY: Chest is clear to auscultation, no wheezing or crackles. ABDOMEN: Soft, tender, nondistended, normoactive bowel sounds. No palpable organomegaly. MUSCULOSKELETAL: No joint swelling or deformity. EXTREMITIES: No cyanosis, clubbing, or pedal edema. NEUROLOGICAL: Gross neurological examination did not reveal any focal deficits. SKIN: No rashes. Assessment and Plan Acute abdominal pain due to gallstone pancreatitis patient has passed the gallstone amylase and lipase have normalized patient scheduled to undergo laproscopic cholecystectomy today. Transaminitis secondary to the gallstone pancreatitis, levels are improving Hyponatremia due to poor oral intake patient has been NPO continues on IV fluids Hypertension currently low normal blood pressure holding hydrodiuril and decrease losartan. Obesity Hx of sleep apnea Former smoker GI prophylaxis DVT prophylaxis Full Code The impression and plan of care has been dictated by Keri Thompson, Nurse Practitioner as directed. Dr. Adeola MD I have performed a history and physical examination and medical decision making of this patient, discussed the same with the dictator, and agree with the dictators assessment and plan as written, documented as a scribe. Based on total visit time, I have performed more than 50% of this visit. Objective - Vital Signs Vital signs: Vital Signs Temp 97.9 F 01/18/24 18:00 Pulse 69 01/18/24 18:11 Resp 16 01/18/24 18:00 BP 125/81 01/18/24 18:11 Pulse Ox 95 01/18/24 18:11 FiO2 Intake & Output 01/18/24 01/18/24 01/19/24 06:59 18:59 06:59 Intake Total 540 1700 Output Total 20 Balance 540 1680 Weight 152.407 kg Intake: IV 1700 Oral 540 Output: Estimated Blood Loss 20 Other: # Voids 1 - Labs CBC & Chem 7: 01/18/24 12:09 01/18/24 12:09 Labs: Abnormal Lab Results - Last 24 Hours (Table) 01/18/24 01/18/24 Range/Units 12:09 12:09 Plt Count 136 L (150-450) k/uL Chloride 110 H (98-107) mmol/L BUN 7 L (9-20) mg/dL Glucose 100 H (74-99) mg/dL ALT 153 H (4-49) U/L Assessment and Plan Time with Patient: Less than 30
[2024-01-19 08:36] VITALS: BP 119/80; PULSE 64; RESP 18; TEMP 97.9
[2024-01-19] MEDS: LOSARTAN 50 MG TAB PO SCH (08:43)
[2024-01-19] MEDS: hydroCHLOROthiazide 12.5 MG CAP PO SCH (11:04)
--- NOTE | 2024-01-19 11:46 | P.PN ---
Subjective Progress Note Date: 01/19/24 CHIEF COMPLAINT: Gallstone pancreatitis HISTORY OF PRESENT ILLNESS: Patient is postop day #1 status post laparoscopic cholecystectomy. Patient tolerated surgery well. Pain is controlled. Patient reports pain feels different than the pain on admission. Patient does report discomfort in the right upper quadrant. He is tolerating diet. He has been up and ambulating. He is urinating without difficulty. He is afebrile. Patient reports he is feeling better and would like to eat more. PHYSICAL EXAM: VITAL SIGNS: Reviewed. GENERAL: Well-developed in no acute distress. ABDOMEN: Soft. Nondistended. Mild Tenderness right upper quadrant. Incision sites clean dry and intact. NEUROLOGIC: Alert and oriented. Cranial nerves II through XII grossly intact. ASSESSMENT: 1. Gallstone pancreatitis status post laparoscopic cholecystectomy PLAN: -Advance diet to low-fat -Patient can be discharged from surgical standpoint -Abdominal binder ordered for comfort Physician Identification Printing Machine Setter note has been reviewed by physician. Signing provider agrees with the documented findings, assessment, and plan of care. Objective - Vital Signs Vital signs: Vital Signs Temp 97.9 F 01/19/24 07:25 Pulse 64 01/19/24 08:00 Resp 18 01/19/24 07:25 BP 119/80 01/19/24 07:25 Pulse Ox 96 01/19/24 07:25 FiO2 Intake & Output 01/18/24 01/19/24 01/19/24 18:59 06:59 18:59 Intake Total 1700 Output Total 20 Balance 1680 Weight 152.407 kg Intake: IV 1700 Output: Estimated Blood Loss 20 Other: Voiding Method Toilet # Voids 3 - Labs CBC & Chem 7: 01/18/24 12:09 01/18/24 12:09 Labs: Abnormal Lab Results - Last 24 Hours (Table) 01/18/24 01/18/24 Range/Units 12:09 12:09 Plt Count 136 L (150-450) k/uL Chloride 110 H (98-107) mmol/L BUN 7 L (9-20) mg/dL Glucose 100 H (74-99) mg/dL ALT 153 H (4-49) U/L
--- NOTE | 2024-01-19 11:55 | P.PN ---
Subjective Progress Note Date: 01/19/24 Principal diagnosis: Gallstone pancreatitis This is a pleasant 38-year-old male who presented to the emergency department yesterday with complaints of abdominal pain that began on Monday night and continued throughout Monday and Monday. He came to the emergency department for further evaluation. Patient had elevated LFTs as well as amylase and lipase, gastroenterology was consulted for pancreatitis and cholelithiasis. Most of the abdominal pain is in the upper abdomen and associated with dry heaving. States today abdominal pain is better. He has tolerating clear liquid diet. Admitting labs WBC 4.1 hemoglobin 15 platelet count 149,000 total bilirubin 1.8 AST 199 ALT 279 alkaline phosphatase 76 amylase 418 lipase 3705. Today's repeat labs are trending down with total bilirubin 1.3 AST 85 ALT 207 alkaline phosphatase 68 amylase 79 and lipase 216. Gallbladder ultrasound and CT of the abdomen pelvis were completed as part of his workup reporting hepatic steatosis and cholelithiasis with no CBD dilation. 01/18/2024 Patient seen and examined today as a follow-up. States abdominal pain has improved significantly. Still has little bit of left upper quadrant tenderness. Denies any nausea or vomiting. He is scheduled for laparoscopic c holecystectomy today. Patient has been afebrile. Total bilirubin 1.0 AST 56 ALT 153 alkaline phosphatase 69 amylase 42 lipase 64 01/19/2024 Patient seen and examined today as a follow-up. He underwent laparoscopic cholecystectomy yesterday. States he is quite sore. He has been afebrile. He was on a clear liquid and states that they ordered him a full liquid for breakfast. Objective - Vital Signs Vital signs: Vital Signs Temp 97.9 F 01/19/24 07:25 Pulse 64 01/19/24 08:00 Resp 18 01/19/24 07:25 BP 119/80 01/19/24 07:25 Pulse Ox 96 01/19/24 07:25 FiO2 Intake & Output 01/18/24 01/19/24 01/19/24 18:59 06:59 18:59 Intake Total 1700 Output Total 20 Balance 1680 Weight 152.407 kg Intake: IV 1700 Output: Estimated Blood Loss 20 Other: Voiding Method Toilet # Voids 3 - Exam General appearance: The patient is alert, oriented, appears in no acute distress. HET: Head is normocephalic and atraumatic. Conjunctiva pink. Sclera anicteric. Neck: Supple without lymphadenopathy. Abdomen: Soft, left upper quadrant tenderness, nondistended. Morbidly obese. Extremities: Normal skin color and turgor. No pedal edema Skin: No rashes, no jaundice Neurological: No focal deficits. Alert and oriented. - Labs CBC & Chem 7: 01/18/24 12:09 01/18/24 12:09 Labs: Abnormal Lab Results - Last 24 Hours (Table) 01/18/24 01/18/24 Range/Units 12: 12:09 Plt Count 136 L (150-450) k/uL Chloride 110 H (98-107) mmol/L BUN 7 L (9-20) mg/dL Glucose 100 H (74-99) mg/dL ALT 153 H (4-49) U/L Assessment and Plan (1) Gallstone pancreatitis Narrative/Plan: 38-year-old male presenting with abdominal pain mostly in the right upper quadrant and epigastric region. Noted to have elevated LFTs as well as amylase and lipase consistent with pancreatitis. Imaging both on CAT scan and ultrasound with findings of cholelithiasis. No CBD dilation. Patient did have elevation in total bilirubin as well as AST and ALT which suggest patient may have passed stone however LFTs have all trended down as well as amylase and lipase. No plans on endoscopic evaluation with a ERCP. Recommend surgical evaluation and recommendation for cholecystectomy. LFTs continue to trend down abdominal pain improved. Scheduled for cholecystectomy today. Current Visit: Yes Status: Acute Code(s): K85.10 - BILIARY ACUTE PANCREATITIS WITHOUT NECROSIS OR INFECTION SNOMED Code(s): 77619959 (2) Abdominal pain Current Visit: Yes Status: Acute Code(s): R10.9 - UNSPECIFIED ABDOMINAL PAIN SNOMED Code(s): 09656317 (3) Cholelithiasis Narrative/Plan: Patient is status postcholecystectomy with general surgery Current Visit: Yes Status: Acute Code(s): K80.20 - CALCULUS OF GALLBLADDER W/O CHOLECYSTITIS W/O OBSTRUCTION SNOMED Code(s): 621649935 (4) Elevated LFTs Current Visit: Yes Status: Acute Code(s): R79.89 - OTHER SPECIFIED ABNORMAL FINDINGS OF BLOOD CHEMISTRY SNOMED Code(s): 248170199 (5) Morbid obesity with BMI of 45.0-49.9, adult Current Visit: No Status: Acute Code(s): E66.01 - MORBID (SEVERE) OBESITY DUE TO EXCESS CALORIES; Z68.42 - BODY MASS INDEX [BMI] 45.0-49.9, ADULT SNOMED Code(s): 516050423 Plan: 1. Continue symptomatic and supportive care 2. Diet per recommendations from general surgery 3. Pain medication as needed 4. No plans on ERCP 5. Continue with recommendations from general surgery Thank you for this consultation, we will sign off at this time. Dr. Jeferson Teran I agree with the dictator's note, documented as a scribe by Melodie Reyez. Sign off
[2024-01-19] MEDS ORDERED: metFORMIN 500 MG TAB PO SCH (17:00)
--- NOTE | 2024-01-20 16:14 | P.DS ---
Providers Date of admission: 01/16/24 14:36 Attending physician: Jose Alberto Wise Consults: 01/16/24 12:09 Consult Physician Urgent Consulting Provider: Donnie Lewis Consult Reason/Comments: Pancreatitis, elevated LFTs, cholelithiasis Do you want consulting provider notified?: Yes Consult Physician Urgent Consulting Provider: Marcela Teran Consult Reason/Comments: Elevated LFTs, pancreatitis, cholelithiasis Do you want consulting provider notified?: Already Contacted Primary care physician: oHmero Aranda Hospital Course: Final Diagnosis Acute abdominal pain due to gallstone pancreatitis patient has passed the gallstone amylase and lipase have normalized postoperative laproscopic cholecystectomy Transaminitis secondary to the gallstone pancreatitis, levels are improving Hyponatremia due to poor oral intake improved with IV fluids Hypertension Obesity Hx of sleep apnea Former smoker Discharge Disposition Patient is stable for discharge home. Has been cleared by surgical services and has a follow-up appointment made for January 30 at 1:[address] Oneill. Patient is discharged all same home medications additionally discharged on Tylenol No. 3. Recommend repeat a CMP in 2 to 3 days. Patient to follow-up with his PCP Dr. Homero Aranda on January 22 at 10:40 AM. Hospital Course This is a pleasant 38-year-old male with history of hypertension, obesity, sleep apnea. Presents to the emergency department with complaints of abdominal pain that began on Monday night and continued throughout Monday and Monday. He came to the emergency department for further evaluation. Patient had elevated LFTs as well as amylase and lipase. Admitted to the hospital under medicine with gastroenterology consultation. There is concern for gallstone pancreatitis. Most of the abdominal pain is in the upper abdomen and associated with dry heaving. States today abdominal pain is better. He has tolerating clear liquid diet. Admitting labs WBC 4.1 hemoglobin 15 platelet count 149,000 total bilirubin 1.8 AST 199 ALT 279 alkaline phosphatase 76 amylase 418 lipase 3705. Gallbladder ultrasound and CT of the abdomen pelvis were completed as part of his workup reporting hepatic steatosis and cholelithiasis with no CBD dilation. Patient was felt to have passed the gallstone as his enzymes have significantly improved. He underwent laproscopic cholecystectomy on 01/18/24. Postoperatively he is having mild abdominal pain. He is passing gas. Tolerating regular diet. Has been up ambulating. Cleared for discharge home. Please see medication reconciliation for a list of current medications. Thank sedrick meyrs for allowing us to participate in the care of this patient. The impression and plan of care has been dictated by Keri Thompson, Nurse Practitioner as directed. Dr. Adeola MD I have performed a history and physical examination and medical decision making of this patient, discussed the same with the dictator, and agree with the dictators assessment and plan as written, documented as a scribe. Based on total visit time, I have performed more than 50% of this visit. Patient Condition at Discharge: Stable Plan - Discharge Summary Discharge Rx Participant: No New Discharge Prescriptions: New Acetaminophen-Codeine 300-30mg [Tylenol w/codeine #3] 1 tab PO Q4H PRN 3 Days #6 tablet PRN Reason: Pain Continue metFORMIN HCL ER [Glucophage XR] 1,000 mg PO PC-SUPPER Olmesartan/Hydrochlorothiazide [Olmesartan-Hctz 20-12.5 mg Tab] 1 tab PO DAILY Ibuprofen [Motrin] 600 mg PO Q8HR PRN PRN Reason: Pain Discharge Medication List metFORMIN HCL ER [Glucophage XR] 1,000 mg PO PC-SUPPER 01/26/23 [History] Ibuprofen [Motrin] 600 mg PO Q8HR PRN 01/16/24 [History] Olmesartan/Hydrochlorothiazide [Olmesartan-Hctz 20-12.5 mg Tab] 1 tab PO DAILY 01/16/24 [History] Acetaminophen-Codeine 300-30mg [Tylenol w/codeine #3] 1 tab PO Q4H PRN 3 Days #6 tablet 01/18/24 [Rx] Follow up Appointment(s)/Referral(s): Donnie Lewis MD [Medical Doctor] - 01/31/24 1:40 pm Homero Aranda MD [Primary Care Provider] - 01/23/24 10:40 am Ambulatory/Diagnostic Orders: Comprehensive Metabolic Panel [LAB.AMB] Time Frame: 3 Days, Location: None Selected Patient Instructions/Handouts: *Surgery [facility] - Laparoscopic Cholecystectomy Discharge Instructions, Laparoscopic Cholecystectomy (DC) Discharge Disposition: HOME SELF-CARE
--- NOTE | 2024-01-22 15:30 | CDI ---
Documentation Clarification Form Date: 01/22/2024 03:22:00 PM From: Lori Monsalve Phone: Admit Date: 01/16/2024 02:36:00 PM Patient Name: Amrit Alvarez Visit Number: [id number] Discharge Date: 01/19/2024 01:11:00 PM ATTENTION: The Clinical Documentation Specialists (CDI) and [facility] Coding Staff appreciate your assistance in clarifying documentation. Please respond to the clarification below the line at the bottom and electronically sign. The CDI & [facility] Coding staff will review the response and follow-up if needed. Please note: Queries are made part of the Legal Health Record. If you have any questions, please contact the author of this message via ITS. Dr. Kaylie Mir Your patient is receiving the following: of Metformin 500mg tablet 01/16/24. Please clarify what condition/diagnosis is being treated. History/Risk Factors: 38yo M, gallstone pancreatitis, transaminases, hyponatremia, HTN, morbid obesity, sleep apnea, former smoker Clinical indicators: Glucose: 01/15 151 01/16 98-151 01/17 100 01/18 100 Treatment: Metformin 500mg tablet Home dosage of Metformin HCL ER [Glucophage XR] 1,000 mg PO PC-SUPPER What diagnosis are you treating with Metformin HCL ER? [ x] Prediabetes [ ] DMII with hyperglycemia [ ] No additional diagnosis [ ] Other, please specify [ ] Unable to determine (Template Last Reviewed: October 2020) MTDD
== END 2024-01-19 13:11 | disposition home or self-care (01) | DRG 418 ==
LOC: EC 09:02 → 4SSUR 14:36 → 1SOBS 21:22 → 5NMEDONC 01-18 13:51
PROVIDERS: ADMIT Hospitalist; ATTEND Hospitalist
PROC: 0FT44ZZ Resection of Gallbladder, Percutaneous Endoscopic Approach (ICD-10-PCS; principal; 2024-01-18 07:30)
DX: K85.10 Biliary acute pancreatitis without necrosis or infection (principal); E87.1 Hypo-osmolality and hyponatremia; K80.12 Calculus of gallbladder with acute and chronic cholecystitis without obstruction; Z68.42 Body mass index [BMI] 45.0-49.9, adult; E66.01 Morbid (severe) obesity due to excess calories; K76.0 Fatty (change of) liver, not elsewhere classified; I10 Essential (primary) hypertension; M19.90 Unspecified osteoarthritis, unspecified site; R73.03 Prediabetes; G47.30 Sleep apnea, unspecified; Z87.891 Personal history of nicotine dependence; Z79.84 Long term (current) use of oral hypoglycemic drugs; Z87.442 Personal history of urinary calculi
CPT/HCPCS: 36415; 71045; 74177; 76705; 80053; 81003; 82150; 82248; 83605; 83690; 85025; 88304; 93005; 96361; 96374; 96375; 99285

== ENCOUNTER → 2024-01-22 | Outpatient (CLI) | payer OTHER ==
[2024-01-22 18:58] LABS: ALT 93 U/L (10-49); AST 36 U/L (14-35); Albumin 4.4 g/dL (3.8-4.9); Albumin/Globulin Ratio 1.83 Ratio (1.60-3.17); Alkaline Phosphatase 79 U/L (41-126); BUN/Creat Ratio 10.89 Ratio (12.00-20.00); Blood Urea Nitrogen 9.8 mg/dL (9.0-27.0); Calcium 9.2 mg/dL (8.7-10.3); Carbon Dioxide 24.5 mmol/L (21.6-31.8); Chloride 104 mmol/L (96-109); Globulin 2.4 g/dL (1.6-3.3); Glucose 142 mg/dL (70-110); Sodium 140 mmol/L (135-145); Total Bilirubin 0.6 mg/dL (0.3-1.2); Total Protein 6.8 g/dL (6.2-8.2)
== END | disposition home or self-care (01) ==
LOC: LABWHC1 12:25
PROVIDERS: ATTEND Nurse Practitioner Family
DX: Z90.49 Acquired absence of other specified parts of digestive tract (principal)
CPT/HCPCS: 36415; 80053